=== PATIENT | female | born 1990 | race Hispanic/Latino ===

== ENCOUNTER 2023-10-02 14:37 | Emergency (ER) | payer OTHER ==
--- OUTSIDE RECORDS SUMMARY | 2023-10-02 14:41 | XMS REPORT | Continuity of Care Document ---
Author Name Unknown Address [address] [facility] [address] [place] [address] [facility] thconnect Address [address] [facility] [address] [place] [address] Care Team Providers Care Cell Tower Climber Name Role Phone Nico Menjivar MD Primary Care Physician NICHOL VILLAVICENCIO Attending Clinician Unavailable CHELSEA CHÁVEZ Attending Clinician Unavailab Chelsea Samuel Attending Clinician GC_GCBZW_Kadimarjoriea_S Attending Clinician Unavaila NAVEED Serrato Attending Clinician Unavaila NAVEED Serrato Attending Clinician Unavaila ble Doctor Unassigned, [place] Attending Clinician U navailable [email or web address]_S Admitting Clinician Unavaila ble Payers Payer Name Policy Type Policy Number Effective Date Expirati on Date Source [facility] ALEX ORTIZ COPAY FOCUS 9 [id number] 2023 00:00:00 UMR [id number] 2020 00:00:00 Problems Condition Name Condition Details Condition Category Status Onset Date Resolution Date Last Treatment Date Treating Clinician Comments Source Pes planus of both feet Pes planus of both feet Disease Active 09-10 00:00: 00 Azalia Seybold - Externa l General counseling for prescripti on of oral contracept dawson General counseling for prescripti on of oral contracept dawson Disease Active 2016-02 00:00: 00 [facility] Tobacco use disorder Tobacco use disorder Disease Active 2016-02 00:00: 00 [facility] BMI 32.0-32.9, adult BMI 32.0-32.9, adult Disease Active 2016-02 00:00: 00 [facility] Morbid obesity Morbid obesity Disease Active Azalia Seybold - Externa l Prediabete s Prediabete s Disease Active Azalia Seybold - Externa l Family history of diabetes mellitus (DM) Family history of diabetes mellitus (DM) Disease Active Azalia Seybold - Externa l Anxiety Anxiety Disease Active Azalia Seybold - Externa l Depression Depression Disease Active Kelly mock Seybold - Externa l Insomnia Insomnia Disease Active Khalif avilez Seybold - Externa l Allergies, Adverse Reactions, Alerts Allergy Name Allergy Type Status Severity Reaction(s) Onset Date Inactive Date Treating Clinician Comments Source PENICILL IN DRUG INGREDI Active Unknown-Cmnt 09-15 00:00: 00 [facility] Penicill in Propensi ty to adverse reaction s Active Unknown - See comments 09-15 00:00: 00 [facility] Penicill in G Propensi ty to adverse reaction s Active 09-15 00:00: 00 Other Reaction( s): Unknown - See comments Azalia Mayes - Externa l Social History Social Habit Start Date Stop Date Quantity Comments Source Sexual orientation Kelly Mayes - External History of tobacco use Cigarette Smoker Azalia muller - External History of Social function 2023-09-11 00:00:00 2023-09-11 00:00:00 Azalia Mayes - External Education 2023-09-11 00:00:00 2023-09-11 00:00:00 13 Azalia Mayes - External Cigarettes smoked current (pack per day) - Reported 2023-09-11 00:00:00 2023-09-11 00:00:00 Azalia Mayes - External Cigarette pack-years 2023-09-11 00:00:00 2023-09-11 00:00:00 Azalia Mayes - External Tobacco use and exposure 2023-09-11 00:00:00 2023-09-11 00:00:00 Smokeless tobacco non-user Azalia Lexyohana - External Alcoholic beverage intake 2023-09-11 00:00:00 2023-09-11 00:00:00 Lifetime non-drinker (finding) Azalia Gerber - External Alcohol intake 2022-11-28 00:00:00 2022-11-28 00:00:00 Current drinker of alcohol (finding) [facility] Tobacco Comment 2022-11-28 00:00:00 2022-11-28 00:00:00 pack/day [facility] Alcohol Comment 2022-11-28 00:00:00 2022-11-28 00:00:00 rare [facility] Sex assigned at 1990 00:00:00 1990 00:00:00 Azalia Mayes - External Smoking Status Start Date Stop Date Source Ex-smoker 2023-09-11 00:00:00 2023-09-11 00:00:00 Kelly mock Gerber - External Smokes tobacco daily 2016-12-27 00:00:00 [facility] Medications Ordered Medication Name Filled Medication Name Start Date Stop Date Current Medication? Ordering Clinician Indication Dosage Frequency Signature (SIG) Comments Components Source Trazodone HCl 50 MG oral Tablet 09-10 16:39: 29 Yes 12 50mg QD Take 1 tablet (50 mg total) by mouth nightly. Indication s: Trouble Sleeping Azalia olson Vortioxetin e HBr (Trintellix ) 10 MG oral Tablet 09-10 16:37: 51 Yes 1741 1.5{tbl } QD Take 1.5 tablets by mouth daily. Indication s: Major Depressive Disorder Azalia olson Semaglutide -FALGUNI-Loi ght Management 0.25 MG/0.5ML Subcutaneou s Solution Auto-inject or 09-10 00:00: 00 Yes [id number] .25mg Q1W Inject 0.25 mg into the skin once a week. Azalia olson Clonazepam 1 MG oral Tablet 09-10 00:00: 00 Yes [id number] 1mg QD Take 1 tablet (1 mg total) by mouth daily as needed for anxiety. Azalia olson NaCl 0.9% (NS) bolus infusion 1,000 mL 2022-02 16:15: 00 02-13 18:32 :00 No 1000mL at 999 mL/hr, 1,000 mL, IV Infusion, ONCE, 1 dose, On Mon02/13/23 at 1015, STAT [facility] cyclobenzap rine 10 mg tablet 2022-02 0 11:04: 23 Yes 10mg Take 1 tablet by mouth in the morning and 1 tablet at noon and 1 tablet in the evening. [facility] REXULTI 0.5 mg Tab 2022-02 00:00: 00 Yes [facility] venlafaxine XR 150 mg 24 hr capsule 2022-02 00:00: 00 Yes [facility] traZODone 50 mg tablet 16 00:00: 00 Yes [facility] venlafaxine XR 37.5 mg 24 hr capsule 10-11 00:00: 00 Yes [facility] Clonazepam 1 MG oral Tablet 10-11 00:00: 00 09-10 00:00 :00 No 1mg Q.5D Take 1 tablet (1 mg total) by mouth 2 times daily as needed for anxiety. Azalia olson cyclobenzap rine 10 mg tablet 2016-02 15:16: 06 Yes 10mg Take 10 mg by mouth 3 (three) times daily. [facility] norgestimat e-ethinyl estradiol (SPRINTEC) 0.25-35 mg-mcg per tablet 2016-02 00:00: 00 Yes [id number] 1{tbl} Take 1 tablet by mouth daily. [facility] Vital Signs Vital Name Observation Time Observation Value Comments S lilia Systolic blood pressure 2023-09-11 21:10:00 115 mm[Hg] Azalia nunes - External Diastolic blood pressure 2023-09-11 21:10:00 68 mm[Hg] Azalia Burnetto ld - External Heart rate 2023-09-11 21:10:00 88 /min Khalif Mayes - External Body temperature 2023-09-11 21:10:00 36.56 Nadeen Azalia Streeterybold - External Respiratory rate 2023-09-11 21:10:00 16 /min Azalia Burnettold - External Body height 2023-09-11 21:10:00 157.5 cm Luz Elena samuel Seybold - External Body weight 2023-09-11 21:10:00 102.059 kg Luz Elena samuel Seybold - External BMI 2023-09-11 21:10:00 41.15 kg/m2 Luz Elena samuel Seybold - External Oxygen saturation in Arterial blood by Pulse oximetry 2023-09-11 21:10:00 100 /min Azalia Reynoso ld - External Oxygen saturation in Arterial blood by Pulse oximetry 2023-02-13 18:30:00 98 /min [facility] Systolic blood pressure 2023-02-13 18:30:00 111 mm[Hg] [facility] Diastolic blood pressure 2023-02-13 18:30:00 56 mm[Hg] [facility] Heart rate 2023-02-13 18:30:00 89 /min [facility] Respiratory rate 2023-02-13 18:30:00 16 /min [facility] Body temperature 2023-02-13 15:48:00 36.78 Nadeen [facility] Body height 2023-02-13 15:48:00 157.5 cm [facility] Body weight 2023-02-13 15:48:00 108.863 kg [facility] BMI 2023-02-13 15:48:00 43.90 kg/m2 [facility] Systolic blood pressure 2022-11-28 16:02:00 129 mm[Hg] [facility] Diastolic blood pressure 2022-11-28 16:02:00 84 mm[Hg] [facility] Heart rate 2022-11-28 16:02:00 81 /min [facility] Respiratory rate 2022-11-28 16:02:00 18 /min [facility] Body height 2022-11-28 16:02:00 160 cm [facility] Body weight 2022-11-28 16:02:00 101.152 kg [facility] BMI 2022-11-28 16:02:00 39.50 kg/m2 [facility] Procedures Procedure Date / Time Performed Performing Clinicia n Source POCT TEST 2023-02-13 17:45:00 Chelsea Chávez [facility] URINALYSIS 2023-02-13 17:43:00 [facility] 2023-02-13 16:38:00 Chelsea Chávez Un [facility] COMP. METABOLIC PANEL ([id number]) 2023-02-13 16:38:00 Chelsea Chávez [facility] CBC WITH DIFF 2023-02-13 16:38:00 Chelsea [facility]-BNP 2023-02-13 16:38:00 Chelsea Chávez [facility] CONSENT/REFUSAL FOR DIAGNOSIS AND TREATMENT 2023-02-13 15:44:31 Doctor Unassigned, [place] [facility] ASSIGNMENT OF BENEFITS 2022-11-28 15:39:56 Docto r Unassigned, [place] [facility] Encounters Start Date/Time End Date/Time Encounter Type Admission Type Attending Clinicians Care Facility Care Department Encounter ID Source 2023-10-26 15:00:00 2023-10-26 15:00:00 Outpatient NICHOL VILLAVICENCIO [id number] Azalia Mayes 2023-09-25 00:00:00 2023-09-25 00:00:00 Outpatient NICHOL VILLAVICENCIO [id number] Azalia Mayes 2023-09-11 16:15:00 2023-09-11 16:15:00 Outpatient NICHOL VILLAVICENCIO [id number] Azalia Mayes 2023-02-13 09:52:00 2023-02-13 12:32:00 Emergency X CHELSEA CHÁVEZ [facility] ERT [id number] [facility] 2023-02-13 09:52:00 2023-02-13 12:32:00 Emergency Chelsea Chávez [facility] [id number] [facility] 2022-12-17 00:00:00 2022-12-17 00:00:00 Outpatient GC_GCBZW_Ka diyala_S PRIV PRIV [id number] [facility] 2022-12-07 00:00:00 2022-12-07 00:00:00 Outpatient R NAVEED HERNANDEZ [facility] [id number] [facility] 2022-11-28 11:00:00 2022-11-28 11:25:27 Office Visit Naveed Hernandez [facility] 1..840.114 350.1.13.10 [id number] [id number] [facility] 2022-11-28 11:00:00 2022-11-28 11:25:27 Outpatient R NAVEED HERNANDEZ [facility] [id number] [facility] 2022-11-28 00:00:00 2022-11-28 00:00:00 Orders Only Doctor Unassigned, [place] [facility] 1..840.114 350.1.13.10 4.2.7.2.686 [id number] [facility] Results Test Description Test Time Test Comments Results Result Co mments Source [facility] [id number] 17:25:38* Test Item Value Reference Range Interpretation Comme nts NT-proBNP (test code = 25362-2) <=125 Lab Interpretation (test cod e = 41511-0) Normal [facility] [id number] 17:25:12* Test Item Value Reference Range Interpretation Comme nts TROPONIN I (test code = 5952793489) 0.001 ng/mL <=0.034 FROILAN (test code = FROILAN) Reference (Normal) Range (defined by the 99th percentile reference limit): <= 0.034 ng/mL Note: Cardiac troponin begins to rise 3-4 hours after the onset of ischemia. Repeat in 4-6 hours if the sample was drawn within 3-4 hours of the onset of the symptom and found normal. Diagnosis of myocardial injury is made with acute changes in cTn concentrations with at least one serial sample above the 99th percentile upper reference limit (URL), taken together with the patient's clinical presentation. Biotin has been reported to cause a negative bias, interpret results relative to patient's use of biotin. Lab Interpretation (test code = 28062-6) Normal [facility]. METABOLIC PANEL (58878)2023-02-13 17:13:34* Test Item Value Reference Range Interpretation Comme nts NA (test code = 3537013577) 136 mmol/L 135-145 K (test code = 5793077996) 3.8 mmol/L 3.5-5.0 CL (test code = 7502514548) 105 mmol/L 98-108 CO2 TOTAL (test code = 9721614373) 25 mmol/L 23-31 AGAP (test code = 3502385107) 6 2-16 BUN (test code = 0161605128) 9 mg/dL 7-23 GLUCOSE (test code = 7481275085) 140 mg/dL 70-110 H CREATININE (test code = 1374661869) 0.54 mg/dL 0.50-1.04 TOTAL BILI (test code = 8431470251) 0.5 mg/dL 0.1-1.1 CALCIUM (test code = 8821919847) 9.0 mg/dL 8.6-10.6 T PROTEIN (test code = 3294060214) 7.8 g/dL 6.3-8.2 ALBUMIN (test code = 1480856370) 4.1 g/dL 3.5-5.0 ALK PHOS (test code = 8289385572) 106 U/L 34-122 ALTv (test code = 1742-6) 16 U/L 5-35 AST(SGOT) (test code = 7771017672) 18 U/L 13-40 eGFR (test code = 78245-3) 124.9 mL/min/1.73m2 CKD-EPI eGFR (2020). Assuming creatinine has been stable day-to-day for at least three months, the eGFR indicates Category G1 (>= 90 mL/min/1.73 m2) Lab Interpretation (test code = 72045-2) Abnormal [facility] WITH [id number] 16:59:49* Test Item Value Reference Range Interpretation Comme nts WBC (test code = 6690-2) 13.21 See_Comment H [Automated message] The system which generated this result transmitted reference range: 4.30 - 11.10 10*3/?L. The reference range was not used to interpret this result as normal/abnormal. RBC (test code = 789-8) 4.55 See_Comment [Automated message] The system which generated this result transmitted reference range: 3.93 - 5.25 10*6/?L. The reference range was not used to interpret this result as normal/abnormal. HGB (test code = 718-7) 12.4 g/dL 11.6-15.0 HCT (test code = 4544-3) 38.0 % 35.7-45.2 MCV (test code = 787-2) 83.5 fL 80.6-95.5 MCH (test code = 785-6) 27.3 pg 25.9-32.8 MCHC (test code = 786-4) 32.6 g/dL 31.6-35.1 RDW-SD (test code = 01691-7) 43.8 fL 39.0-49.9 RDW-CV (test code = 788-0) 14.3 % 12.0-15.5 PLT (test code = 777-3) 294 See_Comment [Automated message] The system which generated this result transmitted reference range: 166 - 358 10*3/?L. The reference range was not used to interpret this result as normal/abnormal. MPV (test code = 83417-6) 9.5 fL 9.5-12.9 NRBC/100 WBC (test code = 1586101885) 0.0 See_Comment [Automated message] The system which generated this result transmitted reference range: 0.0 - 10.0 /100 WBCs. The reference range was not used to interpret this result as normal/abnormal. NRBC x10^3 (test code = 4969474540) See_Comment [Automated message] The system which generated this result transmitted reference range: 10*3/?L. The reference range was not used to interpret this result as normal/abnormal. GRAN MAT (NEUT) % (test code = 770-8) 77.2 % IMM GRAN % (test code = 0719322848) 0.70 % LYMPH % (test code = 736-9) 15.4 % MONO % (test code = 5905-5) 5.5 % EOS % (test code = 713-8) 0.9 % BASO % (test code = 706-2) 0.3 % GRAN MAT x10^3(ANC) (test code = 7061390823) 10.20 10*3/uL 1.88-7.09 H IMM GRAN x10^3 (test code = 8326325496) 0.09 10*3/uL 0.00-0.06 H LYMPH x10^3 (test code = 731-0) 2.03 10*3/uL 1.32-3.29 MONO x10^3 (test code = 742-7) 0.73 10*3/uL 0.33-0.92 EOS x10^3 (test code = 711-2) 0.12 10*3/uL 0.03-0.39 BASO x10^3 (test code = 704-7) 0.04 10*3/uL 0.01-0.07 Lab Interpretation (test code = 54725-9) [facility] [id number] 08:30:05SPECIMEN NUMBER: [id number] CULTURE, URINE SPECIMEN NUMBER: [id number] SPECIMEN COMMENT: URINE SOURCE: URINE REPORT STATUS: FINAL FINAL REPORT: 07/29/2021 10-50,000 CFU/ML UROGENITAL ARIES PRESENT NO COMMON PATHOGENS UNLESS OTHERWISE INDICATED, ALL TESTING PERFORMED [facility] [address] [place] [address] CASH APPLICATIONS ASSOCIATE: JUAN MANUEL HERNANDEZ M.D. CLIA NUMBER [id number] [facility] [place]. [id number] Notes Date/Time Note Provider Source 2023-02-13 12:30:55 Pt given printed and verbal discharge instructions regarding intermittent lightheadedness and dizziness, encouraged hydration. Pt verbalized understanding of instructions, pt awake alert oriented, resp reg unlabored, skin w/d, color appropriate for race, moves all ext well, pt encouraged to follow up with pcp. Advised to seek medical attention for new/prolonged/worsening of symptoms. Symptoms addressed. No adverse reaction to meds given in ER noted upon discharge. PIV d'cd, dressing to site, catheter intact. Pt leaving amb with steady gait, in no apparent distress, left with . Roche RN [facility] 2023-02-13 09:45:55 Patient states: "About a week ago I collapsed. I was feeling like I was swaying. My hearing got really sensitive, I got weak. It would go away during the day, then come back at night. Today it's staying. I've felt this way for 12 hours. Today my legs and feet are going numb. I had high blood pressure last night of 150/110" Reports MD increasing her Effexor dose for depression 2 weeks ago. Pmhx: none Amaral RN [facility]
[2023-10-02 16:40] LABS: Absolute Basophils 0.1 K/uL (0-0.5); Absolute Eosinophils 0.1 K/uL (0-0.5); Absolute Lymphocytes (CBC) 2.6 K/uL (0.7-4.9); Absolute Monocytes 0.5 K/uL (0.1-1.3); Absolute Neutrophil 6.1 K/uL (1.8-8.0); Eosinophils % 1.1 % (0-4.4); Hemoglobin 11.5 g/dL (12.0-15.0); Lymphocytes % 27.4 % (15.3-44.8); MCH 26.2 pg (27.0-35.0); MCHC 32.8 g/dL (32.0-36.0); MCV 79.8 fL (80-100); MPV 7.4 fL (7.6-11.3); Monocytes % 5.6 % (3.3-12.3); Neutrophils % 64.9 % (41.7-73.7); Nucleated Red Blood Cells % 0.1 % (0-0); Platelets 307 thou/uL (152-406); RBC Red Blood Cell Count 4.38 M/uL (3.86-4.86); Red Cell Distribution Width 16.7 % (12.1-15.2)
[2023-10-02 16:52] LABS: Specific Gravity > 1.030 (1.005-1.030); Sqamous Epithelial <5 /HPF (None Seen); Urine Bacteria <20 /HPF (<20); Urine Bilirubin NEGATIVE (Negative); Urine Blood 3+ (OVER) (Negative); Urine Clarity Extremely Turbid (Clear); Urine Color Orange (Yellow); Urine Culture Reflex Order REFLEXED; Urine Glucose TRACE (Negative); Urine Ketones NEGATIVE (Negative); Urine Microscopic Reflex YN ORDER UMIC; Urine Mucus 3+ /HPF (None Seen); Urine Nitrite NEGATIVE (Negative); Urine Protein 1+ (Negative); Urine RBC >50 /HPF (None Seen); Urine Urobilinogen 1+ (Normal); Urine WBC >50 /HPF (<5); Urine WBC Clump Moderate /HPF (None Seen)
[2023-10-02 16:54] LABS: Specific Gravity > 1.030 (1.005-1.030)
[2023-10-02 16:55] LABS: ALT/SGPT < 14 U/L (13-56); AST/SGOT < 10 U/L (15-37); Albumin/Globulin Ratio 0.7 (1.1-1.8); Alkaline Phosphatase 87 U/L (45-117); BUN Blood Urea Nitrogen 11 mg/dL (7-18); Bicarbonate 24 mEq/L (21-32); Bilirubin Total 0.3 mg/dL (0.2-1.0); Globulin 4.3 g/dL (2.3-3.5); Glomerular Filtration Rate 119 ml/min (=/>90); Glucose Level 102 mg/dL (74-106); Lipase 30 U/L (13-75); Protein, Total 7.3 g/dL (6.4-8.2); Sodium Level 139 mEq/L (136-145)
--- NOTE | 2023-10-02 17:50 | RAD REPORT ---
EXAM DESCRIPTION: CT - Stone Protocol - 10/02/2023 5:33 pm CLINICAL HISTORY: Abdominal pain. Right lower quadrant pain COMPARISON: None. TECHNIQUE: Computed axial tomography of the abdomen pelvis was obtained without oral or IV contrast. Lack of IV and oral contrast limits evaluation of solid organs, appendix, bowel, and vessels. Calixto l reformatted images were obtained and reviewed. All CT scans are performed using dose optimization technique as appropriate and may include automated exposure control or mA/KV adjustment according to patient size. FINDINGS: A renal calculus is not seen. An ureteral calculus is not noted. A bladder calculus is not present. No hydronephrosis The liver, spleen, pancreas and adrenals appear grossly normal There is no evidence of diverticulitis. The appendix appears normal Right ovary appears mildly enlarged Moderate metal stool within the transverse and right colon IMPRESSION: Negative for a genitourinary calculus Mild enlargement right ovary
--- NOTE | 2023-10-02 18:26 | ER ---
Nurse's Notes [facility] Name: Kelly Early Age: 32 yrs Sex: Female : 1990 Arrival Date: 10/02/2023 Time: 14:37 Bed 18 Private MD: Diagnosis: UTI/ Urinary tract infection, site not specified Presentation: 10/01 15:17 Chief complaint: Patient states: RLQ abdominal pain onset 2 days ago. Pt states that cm10 the pain started after starting her period. Pt reports nausea. Coronavirus screen: Client denies travel out of the [place] in the last 14 days. At this time, the client does not indicate any symptoms associated with coronavirus-19. Ebola Screen: Patient denies travel to an Ebola-affected area in the 21 days before illness onset. No symptoms or risks identified at this time. Initial Sepsis Screen: Does the patient meet any 2 criteria? No. Patient's initial sepsis screen is negative. Does the patient have a suspected source of infection? No. Patient's initial sepsis screen is negative. Risk Assessment: Do you want to hurt yourself or someone else? Patient reports no desire to harm self or others. Onset of symptoms was October 02, 2023. 15:17 Method Of Arrival: Ambulatory cm10 15:17 Acuity: CYNTHIA 3 cm10 Triage Assessment: 15:19 General: Appears in no apparent distress. comfortable, Behavior is calm, cooperative. cm10 Neuro: No deficits noted. Level of Consciousness is awake, alert, obeys commands, Oriented to person, place, time, situation, Appropriate for age. MANAGER REGULATORY: 18:48 2, Full Term 1, Premature 0, 0, Living 1, LMP 09/28/2023, kj2 unknown Historical: - Allergies: 15:19 PENICILLINS; cm10 - Home Meds: 15:19 Trintellix oral 15 mg [Active]; cm10 - PMHx: 15:19 Depressive disorder; Anxiety; cm10 - PSHx: 15:19 Tonsillectomy; cm10 - Immunization history:: Adult Immunizations up to date. - Infectious Disease History:: Denies. - Social history:: Smoking status: Reported history of juuling and/or vaping. Screenin:10 [facility] ED Fall Risk Assessment (Adult) History of falling in the last 3 months, kj2 including since admission No falls in past 3 months (0 pts) Confusion or Disorientation No (0 pts) Intoxicated or Sedated No (0 pts) Impaired Gait No (0 pts) Mobility Assist Device Used No (0 pt) Altered Elimination No (0 pt) Score/Fall Risk Level 0 - 2 = Low Risk Maintained a safe environment, Educated pt \T\ family on fall prevention, incl call for assistance when getting out of bed, Hourly rounding (assess needs \T\ fall precautionary measures) done. Abuse screen: Denies threats or abuse. Denies injuries from another. Nutritional screening: No deficits noted. Tuberculosis screening: No symptoms or risk factors identified. Assessment: 18:10 General: Appears in no apparent distress. Behavior is calm, cooperative. Pain: kj2 Complains of pain in abdpmen. Neuro: Level of Consciousness is awake, alert, obeys commands, Oriented to person, place, time. Cardiovascular: Capillary refill < 3 seconds Patient's skin is warm and dry. Respiratory: Airway is patent Respiratory effort is even, unlabored. GI: Bowel sounds present X 4 quads. Abd is non tender. : No deficits noted. Vital Signs: 15:17 BP 119 / 70; Pulse 78; Resp 16; Temp 98.6; Pulse Ox 99% on R/A; Weight 99.79 kg; Height cm10 5 ft. 2 in. ; Pain 7/10; 18:51 BP 111 / 74; Pulse 56; Resp 18; Temp 98.2(O); Pulse Ox 99% on R/A; kj2 15:17 Body Mass Index 40.24 (99.79 kg, 157.48 cm) cm10 15:17 Pain Scale: Adult cm10 ED Course: 14:40 Patient arrived in ED. im 14:56 Rai Trujillo PA is PHCP. cp 14:56 Jim Lock MD is Attending Physician. cp 15:19 Triage completed. cm10 15:20 Arm band placed on Patient placed in waiting room. cm10 16:30 Inserted saline lock: 20 gauge in right antecubital area, using aseptic technique. nj1 Blood collected. Flushed with 10 mL NS. 16:39 Urine collected: clean catch specimen, cloudy, norma colored. zm 16:39 Test, Urine Sent. zm 16:39 Urinalysis w/ reflexes Sent. zm 17:34 CT Stone Protocol In Process Unspecified. EDMS 18:31 Delores Larsen, RN is Primary Nurse. kj2 18:34 Patient has correct armband on for positive identification. Bed in low position. Call kj2 light in reach. Provided Education on: call light, fall precautions. 18:35 No provider procedures requiring assistance completed. kj2 18:50 IV discontinued, intact, bleeding controlled, No redness/swelling at site. Pressure kj2 dressing applied. Administered Medications: 18:50 Drug: Rocephin IV 1 grams IV at calculated rate once; Given slow IV push per pharmacy kj2 instructions Route: IV; Rate: calculated rate; Site: right antecubital; 18:50 Follow up: IV Status: Completed infusion; IV Intake: 10ml kj2 18:51 Follow up: Response: No adverse reaction; Medication administered at discharge. kj2 Medication: 18:35 VIS not applicable for this client. kj2 Intake: 18:50 IV: 10ml; Total: 10ml. kj2 Outcome: 18:26 Discharge ordered by MD. cp 18:49 Discharged to home ambulatory, kj2 18:49 Condition: stable 18:49 Discharge instructions given to patient, Instructed on discharge instructions, follow up and referral plans. Demonstrated understanding of instructions, follow-up care, medications, Prescriptions given X 2, 18:52 Patient left the ED. kj2 Signatures: Dispatcher [employer] EDMS Rai Trujillo PA PA cp Martinez, Zaina zm Jaco, Norma, RN RN nj1 Nazanin Auguste Clarissa, RN RN cm10 Delores Larsen, RN RN kj2
--- NOTE | 2023-10-02 18:27 | EDPHYS ---
Physician Documentation [facility] Name: Kelly Early Age: 32 yrs Sex: Female : 1990 Arrival Date: 10/02/2023 Time: 14:37 Bed 18 Private MD: ED Physician Jim Lock HPI: 10/01 15:30 This 32 yrs old Female presents to ER via Ambulatory with complaints of cp Abdominal Pain. 15:30 The patient presents with abdominal pain right upper lateral abdomen. Onset: The cp symptoms/episode began/occurred 2 day(s) ago. The symptoms do not radiate. Associated signs and symptoms: Pertinent negatives: constipation, diarrhea, fever, urinary symptoms. [employer]: 18:48 2, Full Term 1, Premature 0, 0, Living 1, LMP 09/28/2023, kj2 unknown Historical: - Allergies: 15:19 PENICILLINS; cm10 - Home Meds: 15:19 Trintellix oral 15 mg [Active]; cm10 - PMHx: 15:19 Depressive disorder; Anxiety; cm10 - PSHx: 15:19 Tonsillectomy; cm10 - Immunization history:: Adult Immunizations up to date. - Infectious Disease History:: Denies. - Social history:: Smoking status: Reported history of juuling and/or vaping. ROS: 15:35 Abdomen/GI: Positive for abdominal pain, of the right upper lateral abdomen, Negative cp for vomiting, diarrhea, constipation, 15:35 Constitutional: Negative for body aches, chills, fever, poor PO intake, cp 15:35 Respiratory: Negative for cough, shortness of breath, wheezing, 15:35 : Negative for hematuria, 15:35 Eyes: Negative for injury, pain, redness, and discharge, cp 15:35 Neck: Negative for pain with movement, pain at rest, stiffness, cp 15:35 Cardiovascular: Negative for chest pain, 15:35 Back: Negative for injury or acute deformity, decreased range of motion, 15:35 Neuro: Negative for altered mental status, dizziness, headache, numbness, weakness, 15:35 All other systems are negative, Exam: 15:40 Constitutional: The patient appears in no acute distress, alert, awake, non-toxic, well cp developed, well nourished, 15:40 Head/Face: Normocephalic, atraumatic. cp 15:40 Eyes: Periorbital structures: appear normal, Conjunctiva: normal, no exudate, no injection, Sclera: no appreciated abnormality, Lids and lashes: appear normal, bilaterally, 15:40 ENT: External ear(s): are unremarkable, Nose: is normal, Mouth: Lips: moist, Oral mucosa: pink and intact, moist, Posterior pharynx: Airway: no evidence of obstruction, patent, 15:40 Chest/axilla: Inspection: normal, 15:40 Cardiovascular: Rate: normal, Rhythm: regular, 15:40 Respiratory: the patient does not display signs of respiratory distress, Respirations: normal, no use of accessory muscles, no retractions, labored breathing, is not present, Breath sounds: are clear throughout, no decreased breath sounds, no stridor, no wheezing, 15:40 Abdomen/GI: Inspection: abdomen appears normal, Bowel sounds: active, all quadrants, Palpation: soft, in all quadrants, mild abdominal tenderness, in the right upper lateral abdomen, rebound tenderness, is not appreciated, involuntary guarding, is not appreciated, 15:40 Back: CVA tenderness, is absent, 15:40 Skin: cellulitis, is not appreciated, no rash present. 15:40 Neuro: Orientation: is normal, Mentation: is normal, Motor: moves all fours, strength is normal, Sensation: is normal, Gait: is steady, at a normal pace, without difficulty, Vital Signs: 15:17 BP 119 / 70; Pulse 78; Resp 16; Temp 98.6; Pulse Ox 99% on R/A; Weight 99.79 kg; Height cm10 5 ft. 2 in. ; Pain 7/10; 18:51 BP 111 / 74; Pulse 56; Resp 18; Temp 98.2(O); Pulse Ox 99% on R/A; kj2 15:17 Body Mass Index 40.24 (99.79 kg, 157.48 cm) cm10 15:17 Pain Scale: Adult cm10 MDM: 15:23 Patient medically screened. cp 16:00 Differential diagnosis: cholecystitis, Cholelithiasis, Ectopic , gastritis, cp non-specific abd pain, pancreatitis, Peptic Ulcer Disease, Perf. Duodenal Ulcer, Perf. Gastric Ulcer, Pyelonephritis, Ureterolithiasis, urinary tract infection. 18:25 Data reviewed: vital signs, nurses notes, lab test result(s), radiologic studies, CT cp scan. 18:25 I considered the following discharge prescriptions or medication management in the emergency department Medications were administered in the Emergency Department. See MAR. 18:25 Counseling: I had a detailed discussion with the patient and/or guardian regarding the historical points, exam findings, and any diagnostic results supporting the discharge/admit diagnosis, lab results, radiology results, to return to the emergency department if symptoms worsen or persist or if there are any questions or concerns that arise at home. Special discussion: Based on the patient's Hx, exam, and Dx evaluation, there is no indication for emergent surgery or inpatient Tx. It is understood by the patient/guardian that if the Sx's persist or worsen they need to return immediately for re-evaluation. 10/01 15:24 Order name: CBC with Diff; Complete Time: 17:08 10/01 17:08 Interpretation: Normal except: HGB 11.5; HCT 35.0; MCV 79.8; MCH 26.2; RDW 16.7; MPV cp 7.4. 10/01 15:24 Order name: CMP; Complete Time: 17:08 10/01 18:20 Interpretation: Normal except: CL 109; AST < 10; ALB 3.0; GLOB 4.3; A/G 0.7. 10/01 15:24 Order name: Lipase; Complete Time: 17:08 10/01 15:24 Order name: Test, Urine; Complete Time: 17:08 10/01 18:20 Interpretation: Reviewed. 10/01 15:24 Order name: Urinalysis w/ reflexes; Complete Time: 17:08 10/01 18:21 Interpretation: Normal except: UCLA Extremely Turbid; Urine SG > 1.030; UGLUC TRACE; cp UBLD 3+ (OVER); UPROT 1+; UUROB 1+; UWBC >50; URBC >50; MUCUS 3+; UWBC Clump Moderate. 10/01 16:56 Order name: Urine Culture EDFL 10/01 17:10 Order name: CT Stone Protocol; Complete Time: 18:20 10/01 15:24 Order name: IV Saline Lock; Complete Time: 16:31 10/01 15:24 Order name: Labs collected and sent; Complete Time: 16:31 cp Administered Medications: 18:50 Drug: Rocephin IV 1 grams IV at calculated rate once; Given slow IV push per pharmacy kj2 instructions Route: IV; Rate: calculated rate; Site: right antecubital; 18:50 Follow up: IV Status: Completed infusion; IV Intake: 10ml kj2 18:51 Follow up: Response: No adverse reaction; Medication administered at discharge. kj2 Disposition Summary: 10/02/23 18:26 Discharge Ordered Notes: Location: Home cp Problem: new cp Symptoms: have improved cp Condition: Stable cp Diagnosis - UTI/ Urinary tract infection, site not specified cp Followup: cp - With: Private Physician - When: 2 - 3 days - Reason: Worsening of condition Discharge Instructions: - Discharge Summary Sheet cp - Urinary Tract Infection, Adult cp Forms: - Medication Reconciliation Form cp - Antibiotic Education cp - Prescription Opioid Use cp - Patient Portal Instructions cp - Leadership Thank You Letter cp Prescriptions: - Ibuprofen 800 mg Oral Tablet - take 1 tablet ORAL route every 8 hours As needed take with food; 30 tablet; cp Refills: 0, Product Selection Permitted - Bactrim DS 800-160 mg Oral tablet - take 1 tablet ORAL route every 12 hours for 7 days; 14 tablet; Refills: 0, cp Product Selection Permitted Signatures: Dispatcher [employer] Rai Villeda PA PA cp Martinez, Clarissa RN RN cm10 Delores Larsen RN RN kj2 Corrections: (The following items were deleted from the chart) 17:10 17:10 Stone Protocol+[id number].[email or web address] ordered. EDMS EDMS
[2023-10-02] MEDS ORDERED: CEFTRIAXONE 1000 MG/VIAL ONE (18:38)
[2023-10-02 19:42] VITALS: O2SAT 99
[2023-10-02 19:43] VITALS: BP 111/74; TEMP 98.2
== END 2023-10-02 18:52 | disposition home or self-care (01) ==
LOC: ER 14:37
DX: N39.0 Urinary tract infection, site not specified (principal)
CPT/HCPCS: 87088; 85025; 81001; 87086; 36415; 81025; 83690; 80053; 76377; 74176; 96374; 99284; J0696

== ENCOUNTER 2023-11-01 13:17 | Emergency (ER) | payer OTHER ==
--- OUTSIDE RECORDS SUMMARY | 2023-11-01 13:21 | XMS REPORT | Continuity of Care Document ---
Author Name Unknown Address [address] [facility] [address] [place] [address] [facility] thconnect Address [address] [facility] [address] [place] [address] Care Team Providers Care Assembler Tubing Name Role Phone Nico Menjivar MD Primary Care Physician [phone] NICHOL VILLAVICENCIO Attending Clinician Unavailable MD SANDEE Attending Clinician Unavailab le LAB90 Attending Clinician Unavailable VENICE KENYON Attending Clinician Unavailab JOHN Zayas Attending Clinician Unava ilable CHELSEA CHÁVEZ Attending Clinician Unavailab Chelsea Samuel Attending Clinician [phone] [email or web address]_S Attending Clinician Unavaila NAVEED Serrato Attending Clinician Unavaila NAVEED Serrato Attending Clinician Unavaila bautista Doctor Unassigned, [place] Attending Clinician U navailable [email or web address]_S Admitting Clinician Unavaila ble Payers Payer Name Policy Type Policy Number Effective Date Expirati on Date Source [facility] FOCUS 9 [id number] 2023 00:00:00 UMR [id number] 2020 00:00:00 Problems Condition Name Condition Details Condition Category Status Onset Date Resolution Date Last Treatment Date Treating Clinician Comments Source Acute cystitis without hematuria Acute cystitis without hematuria Disease Active 10-25 00:00: 00 Azalia Mayes - Externa l Abdominal pain, RUQ Abdominal pain, RUQ Disease Active 10-25 00:00: 00 Azalia Mayes - Externa l Snoring Snoring Disease Active 10-25 00:00: 00 Azalia Mayes - Externa l Current mild episode of major depressive disorder Current mild episode of major depressive disorder Disease Active 8-16 00:00: 00 Azalia Mayes - Externa l Pes planus of both feet Pes planus of both feet Disease Active 09-10 00:00: 00 Azalia Mayes - Externa l General counseling for prescripti on of oral contracept dawson General counseling for prescripti on of oral contracept dawson Disease Active 2016-02 00:00: 00 [facility] Tobacco use disorder Tobacco use disorder Disease Active 2016-02 00:00: 00 [facility] BMI 32.0-32.9, adult BMI 32.0-32.9, adult Disease Active 2016-02 00:00: 00 [facility] Morbid obesity Morbid obesity Disease Active Azalia Burnettold - Externa l Prediabete s Prediabete s Disease Active Azalia Streeterybold - Externa l Family history of diabetes mellitus (DM) Family history of diabetes mellitus (DM) Disease Active Azalia Burnettold - Externa l Anxiety Anxiety Disease Active Azalia Burnettold - Externa l Depression Depression Disease Active Kelly Burnettold - Externa l Insomnia Insomnia Disease Active Khalif avilez Seybold - Externa l Allergies, Adverse Reactions, Alerts Allergy Name Allergy Type Status Severity Reaction(s) Onset Date Inactive Date Treating Clinician Comments Source PENICILL IN DRUG INGREDI Active Unknown-Cmnt 09-15 00:00: 00 [facility] Penicill in Propensi ty to adverse reaction s Active Unknown - See comments 09-15 00:00: 00 [facility] Penicill in G Propensi ty to adverse reaction s Active 09-15 00:00: 00 Other Reaction( s): Unknown - See comments Azalia Mayes - Externa l Social History Social Habit Start Date Stop Date Quantity Comments Source Sexual orientation Kelly mock Gerber - External History of tobacco use Cigarette Smoker Azalia Streeterkristina yohana - External Alcoholic beverage intake 2023-10-26 00:00:00 2023-10-26 00:00:00 Lifetime non-drinker (finding) Azalia Mayes - External History of Social function 2023-09-11 00:00:00 2023-09-11 00:00:00 Azalia Mayes - External Education 2023-09-11 00:00:00 2023-09-11 00:00:00 13 Azalia Mayes - External Cigarettes smoked current (pack per day) - Reported 2023-09-11 00:00:00 2023-09-11 00:00:00 Azalia Mayes - External Cigarette pack-years 2023-09-11 00:00:00 2023-09-11 00:00:00 Azalia Mayes - External Tobacco use and exposure 2023-09-11 00:00:00 2023-09-11 00:00:00 Smokeless tobacco non-user Azalia Seping - External Alcohol intake 2022-11-28 00:00:00 2022-11-28 00:00:00 Current drinker of alcohol (finding) [facility] Tobacco Comment 2022-11-28 00:00:00 2022-11-28 00:00:00 pack/day [facility] Alcohol Comment 2022-11-28 00:00:00 2022-11-28 00:00:00 rare [facility] Sex assigned at 1990 00:00:00 1990 00:00:00 Azalia Mayes - External Smoking Status Start Date Stop Date Source Ex-smoker 2023-09-11 00:00:00 2023-09-11 00:00:00 Kelly mock Gerber - External Smokes tobacco daily 2016-12-27 00:00:00 [facility] Medications Ordered Medication Name Filled Medication Name Start Date Stop Date Current Medication? Ordering Clinician Indication Dosage Frequency Signature (SIG) Comments Components Source Vortioxetin e HBr (Trintellix ) 10 MG oral Tablet 10-25 15:02: 39 Yes 1741 1.5{tbl } QD Take 1.5 tablets by mouth daily. Indication s: Major Depressive Disorder Azalia olson Trazodone HCl 50 MG oral Tablet 10-25 15:02: 39 Yes 12 50mg QD Take 1 tablet (50 mg total) by mouth nightly. Indication s: Trouble Sleeping Azalia olson Ciprofloxac in HCl (Cipro) 500 MG oral Tablet 10-19 00:00: 00 10-25 04:59 :00 Yes [id number] 500mg Q.5D Take 1 tablet (500 mg total) by mouth 2 times daily for 5 days. Azalia olson Cariprazine HCl (Vraylar) 1.5 MG oral Capsule 10-17 00:00: 00 Yes Take by mouth. Azalia olson Ibuprofen (MOTRIN) 800 MG oral Tablet 10-01 00:00: 00 Yes Azalia olson TRIMETHOPRI M-SULFAMETH OXAZOLE (BACTRIM DS) 800-160 MG oral Tablet 10-01 00:00: 00 10-25 00:00 :00 No TAKE 1 TABLET BY MOUTH EVERY 12 HOURS X 7 DAYS Azalia olson Trazodone HCl 50 MG oral Tablet 09-10 16:39: 29 Yes 12 50mg QD Take 1 tablet (50 mg total) by mouth nightly. Indication s: Trouble Sleeping Azalia olson Vortioxetin e HBr (Trintellix ) 10 MG oral Tablet 09-10 16:37: 51 Yes 1741 1.5{tbl } QD Take 1.5 tablets by mouth daily. Indication s: Major Depressive Disorder Azalia olson Clonazepam 1 MG oral Tablet 09-10 00:00: 00 Yes [id number] 1mg QD Take 1 tablet (1 mg total) by mouth daily as needed for anxiety. Azalia olson Semaglutide -Quirino ght Management 0.25 MG/0.5ML Subcutaneou s Solution Auto-inject or 7 00:00: 00 10-25 00:00 :00 No [id number] .25mg Q1W Inject 0.25 mg into the skin once a week. Azalia olson NaCl 0.9% (NS) bolus infusion 1,000 mL 2022-02 16:15: 00 02-13 18:32 :00 No 1000mL at 999 mL/hr, 1,000 mL, IV Infusion, ONCE, 1 dose, On Mon02/13/23 at 1015, STAT [facility] cyclobenzap rine 10 mg tablet 2022-02 11:04: 23 Yes 10mg Take 1 tablet by mouth in the morning and 1 tablet at noon and 1 tablet in the evening. [facility] REXULTI 0.5 mg Tab 2022-02 00:00: 00 Yes [facility] venlafaxine XR 150 mg 24 hr capsule 2022-02 00:00: 00 Yes [facility] traZODone 50 mg tablet 9-16 00:00: 00 Yes [facility] venlafaxine XR 37.5 mg 24 hr capsule 10-11 00:00: 00 Yes [facility] Clonazepam 1 MG oral Tablet 10-11 00:00: 00 09-10 00:00 :00 No 1mg Q.5D Take 1 tablet (1 mg total) by mouth 2 times daily as needed for anxiety. Azalia olson cyclobenzap rine 10 mg tablet 2016-02 15:16: 06 Yes 10mg Take 10 mg by mouth 3 (three) times daily. [facility] norgestimat e-ethinyl estradiol (SPRINTEC) 0.25-35 mg-mcg per tablet 2016-02 00:00: 00 Yes [id number] 1{tbl} Take 1 tablet by mouth daily. [facility] Immunizations Ordered Immunization Name Filled Immunization Name Date Status Comments Source Tdap- (Boostrix, Adacel) Unknown Completed Azalia Seybold - External Vital Signs Vital Name Observation Time Observation Value Comments S ource Body height 2023-10-26 20:00:00 157.5 cm Luz Elena ey Seybold - External Body weight 2023-10-26 20:00:00 100.699 kg Luz Elena ey Seybold - External BMI 2023-10-26 20:00:00 40.60 kg/m2 Luz Elena ey Seybold - External Oxygen saturation in Arterial blood by Pulse oximetry 2023-10-26 20:00:00 100 /min Azalia Seybo ld - External Systolic blood pressure 2023-10-26 20:00:00 119 mm[Hg] Azalia Seybo ld - External Diastolic blood pressure 2023-10-26 20:00:00 78 mm[Hg] Azalia Seybo ld - External Heart rate 2023-10-26 20:00:00 96 /min Drese y Seybold - External Respiratory rate 2023-10-26 20:00:00 16 /min Azalia Seybold - External Systolic blood pressure 2023-09-11 21:10:00 115 mm[Hg] Azalia Seybo ld - External Diastolic blood pressure 2023-09-11 21:10:00 68 mm[Hg] Azalia Seybo ld - External Heart rate 2023-09-11 21:10:00 88 /min Drese y Seybold - External Body temperature 2023-09-11 21:10:00 36.56 Nadeen Azalia Seybold - External Respiratory rate 2023-09-11 21:10:00 16 /min Azalia Seybold - External Body height 2023-09-11 21:10:00 157.5 cm Luz Elena ey Seybold - External Body weight 2023-09-11 21:10:00 102.059 kg Luz Elena ey Seybold - External BMI 2023-09-11 21:10:00 41.15 kg/m2 Luz Elena ey Seybold - External Oxygen saturation in Arterial blood by Pulse oximetry 2023-09-11 21:10:00 100 /min Azalia Streeterybo ld - External Systolic blood pressure 2023-02-13 18:30:00 111 mm[Hg] [facility] Diastolic blood pressure 2023-02-13 18:30:00 56 mm[Hg] [facility] Heart rate 2023-02-13 18:30:00 89 /min [facility] Respiratory rate 2023-02-13 18:30:00 16 /min [facility] Oxygen saturation in Arterial blood by Pulse oximetry 2023-02-13 18:30:00 98 /min [facility] Body temperature 2023-02-13 15:48:00 36.78 Nadeen [facility] Body height 2023-02-13 15:48:00 157.5 cm [facility] Body weight 2023-02-13 15:48:00 108.863 kg [facility] BMI 2023-02-13 15:48:00 43.90 kg/m2 [facility] Systolic blood pressure 2022-11-28 16:02:00 129 mm[Hg] [facility] Diastolic blood pressure 2022-11-28 16:02:00 84 mm[Hg] [facility] Heart rate 2022-11-28 16:02:00 81 /min [facility] Respiratory rate 2022-11-28 16:02:00 18 /min [facility] Body height 2022-11-28 16:02:00 160 cm [facility] Body weight 2022-11-28 16:02:00 101.152 kg [facility] BMI 2022-11-28 16:02:00 39.50 kg/m2 [facility] Procedures Procedure Date / Time Performed Performing Clinicia n Source POCT TEST 2023-02-13 17:45:00 Chelsea Chávez [facility] URINALYSIS 2023-02-13 17:43:00 [facility] 2023-02-13 16:38:00 [facility] COMP. METABOLIC PANEL (09295) 2023-02-13 16:38:00 Chelsea Chávez [facility] CBC WITH DIFF 2023-02-13 16:38:00 [facility] 2023-02-13 16:38:00 Chelsea Chávez [facility] CONSENT/REFUSAL FOR DIAGNOSIS AND TREATMENT 2023-02-13 15:44:31 Doctor Unassigned, [place] [facility] ASSIGNMENT OF BENEFITS 2022-11-28 15:39:56 Docto r Unassigned, [place] [facility] Encounters Start Date/Time End Date/Time Encounter Type Admission Type Attending [facility] Care Department Encounter ID Source 2023-12-12 10:45:00 2023-12-12 10:45:00 Outpatient NICHOL VILLAVICENCIO [id number] [facility] 2023-10-27 00:00:00 2023-10-27 00:00:00 Outpatient MD AZALIA WATTS [id number] [facility] 2023-10-27 00:00:00 2023-10-27 00:00:00 Outpatient NICHOL VILLAVICENCIO [id number] Azalia [facility] 2023-10-26 15:00:00 2023-10-26 15:00:00 Outpatient NICHOL VILLAVICENCIO [id number] [facility] 2023-10-26 12:25:00 2023-10-26 12:25:00 Outpatient LAB90 AZALIA ZARATE [id number] [facility] 2023-10-26 00:00:00 2023-10-26 00:00:00 Outpatient AZALIA ZARATE [id number] [facility] 2023-10-22 00:00:00 2023-10-22 00:00:00 Outpatient NICHOL VILLAVICENCIO [id number] Azalia ping 2023-10-20 22:15:00 2023-10-20 22:15:00 Outpatient VENICE KENYON [id number] [facility] 2023-10-20 00:00:00 2023-10-20 00:00:00 Outpatient MD AZALIA WATTS [id number] Azalia ping 2023-10-12 00:00:00 2023-10-12 00:00:00 Outpatient NICHOL VILLAVICENCIO AZALIA [id number] Azalia Mayes 2023-10-10 09:15:00 2023-10-10 09:15:00 Outpatient JOHN ZAMUDIO AZALIA [id number] [facility] 2023-10-06 00:00:00 2023-10-06 00:00:00 Outpatient PREZASNICHOL AZALIA [id number] [facility] 2023-10-05 00:00:00 2023-10-05 00:00:00 Outpatient PREZAS, NICHOL ZARATE AZALIA [id number] [facility] 2023-10-04 00:00:00 2023-10-04 00:00:00 Outpatient PREZAS, NICHOL ZARATE AZALIA [id number] Azalia [facility] 2023-09-25 00:00:00 2023-09-25 00:00:00 Outpatient PREZANICHOL Wren AZALIA [id number] Aazlia [facility] 2023-09-11 16:15:00 2023-09-11 16:15:00 Outpatient PRENICHOL RAMIREZ AZALIA [id number] Azalia [facility] 2023-02-13 09:52:00 2023-02-13 12:32:00 Emergency X TESSA [facility] ERT [id number] [facility] 2023-02-13 09:52:00 2023-02-13 12:32:00 Emergency Chelsea Chávez [facility] [id number] [facility] 2022-12-17 00:00:00 2022-12-17 00:00:00 Outpatient [email or web address]_Ka tere_Holger [facility] [id number] [facility] 2022-12-07 00:00:00 2022-12-07 00:00:00 Outpatient NAVEED COUGHLIN [facility] [id number] [facility] 2022-11-28 11:00:00 2022-11-28 11:25:27 Office Visit Naveed Hernandez [facility] 1..840.114 350.1.13.10 [id number] [id number] [facility] 2022-11-28 11:00:00 2022-11-28 11:25:27 Outpatient R NAVEED HERNANDEZ [facility] [id number] [facility] 2022-11-28 00:00:00 2022-11-28 00:00:00 Orders Only Doctor Unassigned, [place] [facility] [id number] [id number] [facility] Results Test Description Test Time Test Comments Results Result Co mments Source [id number] 17:25:38* Test Item Value Reference Range Interpretation Comme nts NT-proBNP (test code = 39771-0) <=125 Lab Interpretation (test cod e = 76043-7) Normal [facility] [id number] 17:25:12* Test Item Value Reference Range Interpretation Comme nts TROPONIN I (test code = 8142997072) 0.001 ng/mL <=0.034 FROILAN (test code = [...] of biotin. Lab Interpretation (test code = 80552-5) Normal [facility]OLIC PAN[facility] (61392)2023-02-13 17:13:34* Test Item Value Reference Range Interpretation Comme nts NA (test code = 6737528800) 136 mmol/L 135-145 K (test code = 9520532252) 3.8 mmol/L 3.5-5.0 CL (test code = 6923719461) 105 mmol/L 98-108 CO2 TOTAL (test code = 2648782838) 25 mmol/L 23-31 AGAP (test code = 8024105400) 6 2-16 BUN (test code = 9628216463) 9 mg/dL 7-23 GLUCOSE (test code = 6425766939) 140 mg/dL 70-110 H CREATININE (test code = 5824105988) 0.54 mg/dL 0.50-1.04 TOTAL BILI (test code = 4136075335) 0.5 mg/dL 0.1-1.1 CALCIUM (test code = 5875801990) 9.0 mg/dL 8.6-10.6 T PROTEIN (test code = 8062883523) 7.8 g/dL 6.3-8.2 ALBUMIN (test code = 3741677736) 4.1 g/dL 3.5-5.0 ALK PHOS (test code = 0552779899) 106 U/L 34-122 ALTv (test code = 1742-6) 16 U/L 5-35 AST(SGOT) (test code = 6045009637) 18 U/L 13-40 eGFR (test code = 58634-5) 124.9 mL/min/1.73m2 CKD-EPI eGFR (2020). Assuming creatinine has been stable day-to-day for at least three months, the eGFR indicates Category G1 (>= 90 mL/min/1.73 m2) Lab Interpretation (test code = 18972-9) Abnormal [facility] WITH [id number] 16:59:49* Test Item Value Reference Range Interpretation [...] 32.6 g/dL 31.6-35.1 RDW-SD (test code = 08601-2) 43.8 fL 39.0-49.9 RDW-CV (test code = 788-0) 14.3 % 12.0-15.5 PLT (test code = 777-3) 294 See_Comment [Automated message] The system which generated this result transmitted reference range: 166 - 358 10*3/?L. The reference range was not used to interpret this result as normal/abnormal. MPV (test code = 15878-2) 9.5 fL 9.5-12.9 NRBC/100 WBC (test code = 7220264092) 0.0 See_Comment [Automated message] The system which generated this result transmitted reference range: 0.0 - 10.0 /100 WBCs. The reference range was not used to interpret this result as normal/abnormal. NRBC x10^3 (test code = 5865294128) See_Comment [Automated message] The system which generated this result transmitted reference range: 10*3/?L. The reference range was not used to interpret this result as normal/abnormal. GRAN MAT (NEUT) % (test code = 770-8) 77.2 % IMM GRAN % (test code = 1089404501) 0.70 % LYMPH % (test code = 736-9) 15.4 % MONO % (test code = 5905-5) 5.5 % EOS % (test code = 713-8) 0.9 % BASO % (test code = 706-2) 0.3 % GRAN MAT x10^3(ANC) (test code = 1342135312) 10.20 10*3/uL 1.88-7.09 H IMM GRAN x10^3 (test code = 5431925570) 0.09 10*3/uL 0.00-0.06 H LYMPH x10^3 (test code = 731-0) 2.03 10*3/uL 1.32-3.29 MONO x10^3 (test code = 742-7) 0.73 10*3/uL 0.33-0.92 EOS x10^3 (test code = 711-2) 0.12 10*3/uL 0.03-0.39 BASO x10^3 (test code = 704-7) 0.04 10*3/uL 0.01-0.07 Lab Interpretation (test code = 97720-5) Abnormal [facility], [id number] 08:30:05SPECIMEN NUMBER: [id number] CULTURE, URINE SPECIMEN NUMBER: [id number] SPECIMEN COMMENT: URINE SOURCE: URINE REPORT STATUS: FINAL FINAL REPORT: 07/29/2021 10-50,000 CFU/ML UROGENITAL ARIES PRESENT NO COMMON PATHOGENS UNLESS OTHERWISE INDICATED, ALL TESTING PERFORMED [facility] [address] [place] [address] FENCE RIDER: JUAN MANUEL HERNANDEZ M.D. [place] NUMBER [id number] [facility] [place]. [id number] Notes Date/Time Note Provider Source 2023-02-13 12:30:55 [...] in no apparent distress, left with . TABLE OPERATOR Tootie Roche RN [facility] 2023-02-13 09:45:55 Patient states: "About a week [...] for depression 2 weeks ago. Pmhx: none TABLE OPERATOR Ute Amaral RN [facility]
--- NOTE | 2023-11-01 14:49 | RAD REPORT ---
EXAM DESCRIPTION: Ricarda Single View11/01/2023 2:21 pm CLINICAL HISTORY: Palpitation COMPARISON: none FINDINGS: The lungs appear clear of acute infiltrate. The heart is normal size IMPRESSION: No acute abnormalities displayed
[2023-11-01 15:07] LABS: Absolute Eosinophils 0.1 K/uL (0-0.5); Absolute Lymphocytes (CBC) 1.6 K/uL (0.7-4.9); Absolute Monocytes 0.6 K/uL (0.1-1.3); Absolute Neutrophil 7.7 K/uL (1.8-8.0); Basophils % 0.5 % (0-1.3); Eosinophils % 0.7 % (0-4.4); Hematocrit 34.9 % (36.0-45.0); Hemoglobin 11.5 g/dL (12.0-15.0); Lymphocytes % 16.2 % (15.3-44.8); MCH 26.1 pg (27.0-35.0); MCHC 32.9 g/dL (32.0-36.0); MCV 79.4 fL (80-100); MPV 7.4 fL (7.6-11.3); Monocytes % 5.8 % (3.3-12.3); Neutrophils % 76.8 % (41.7-73.7); Platelets 332 thou/uL (152-406); RBC Red Blood Cell Count 4.39 M/uL (3.86-4.86); Red Cell Distribution Width 15.7 % (12.1-15.2)
[2023-11-01 15:17] LABS: Specific Gravity 1.006 (1.005-1.030)
[2023-11-01 15:19] LABS: Barbiturates NEGATIVE (NEGATIVE); Benzodiazepines NEGATIVE (NEGATIVE); Cocaine NEGATIVE (NEGATIVE); METHAMPHETAM NEGATIVE (NEGATIVE); Methadone NEGATIVE (NEGATIVE); Opiates NEGATIVE (NEGATIVE); Phencyclidine NEGATIVE (NEGATIVE); THC Cannibis POSITIVE (NEGATIVE)
[2023-11-01 15:20] LABS: Specific Gravity 1.006 (1.005-1.030); Urine Bacteria <20 /HPF (<20); Urine Bilirubin NEGATIVE (Negative); Urine Blood Negative (Negative); Urine Clarity Turbid (Clear); Urine Color Colorless (Yellow); Urine Crystals Unidentified Few /HPF (None Seen); Urine Culture Reflex Order REFLEXED; Urine Glucose NEGATIVE (Negative); Urine Ketones NEGATIVE (Negative); Urine Microscopic Reflex YN ORDER UMIC; Urine Nitrite NEGATIVE (Negative); Urine Protein NEGATIVE (Negative); Urine RBC <5 /HPF (None Seen); Urine Urobilinogen Normal (Normal); Urine pH 6.5 (5.0-7.0)
[2023-11-01 15:33] LABS: ALT/SGPT 15 U/L (13-56); Albumin 3.2 g/dL (3.4-5.0); Albumin/Globulin Ratio 0.8 (1.1-1.8); Alkaline Phosphatase 97 U/L (45-117); Anion Gap 9.9 mEq/L (5.0-15.0); BUN Blood Urea Nitrogen 8 mg/dL (7-18); Bicarbonate 23 mEq/L (21-32); Bilirubin Total 0.3 mg/dL (0.2-1.0); Globulin 4.2 g/dL (2.3-3.5); Glomerular Filtration Rate 120 ml/min (=/>90); Glucose Level 96 mg/dL (74-106); Potassium 3.9 mEq/L (3.5-5.1); Protein, Total 7.4 g/dL (6.4-8.2); Sodium Level 137 mEq/L (136-145)
[2023-11-01 15:34] LABS: AST/SGOT < 10 U/L (15-37); Troponin High Sensitivity < 3.0 pg/mL (<58.9)
--- NOTE | 2023-11-01 16:13 | EDPHYS ---
Physician Documentation [facility] Name: Kelly Early Age: 32 yrs Sex: Female : 1990 Arrival Date: 11/01/2023 Time: 13:17 Bed 2 Private MD: ED Physician Rai Nelson HPI: 10/31 13:37 This 32 yrs old Female presents to ER via Unassigned with complaints of kb tremors. 13:37 Pt is a 32 year old female who presents for tremors and palpitations that started one kb hour ago. States she took her trintellix (normal dose and time) then smoked some THC. States symptoms have not improved so she came in for evaluation. . ACQUISITION CONSULTANT: 16:23 LMP N/A - control method, Not ll1 Historical: - Allergies: 13:49 PENICILLINS; iw - PMHx: 13:49 depressive disorder; Anxiety; iw - PSHx: 13:49 Tonsillectomy; iw - Immunization history:: Adult Immunizations up to date. - Infectious Disease History:: Denies. - Social history:: Smoking status: Patient denies any tobacco usage or history of. ROS: 13:37 Constitutional: As per HPI kb Exam: 13:37 Constitutional: This is a well developed, well nourished patient who is awake, alert, kb and in no acute distress. Head/Face: Normocephalic, atraumatic. ENT: Moist Mucous membranes Cardiovascular: Tachycardic rate Respiratory: Respirations even and unlabored. No increased work of breathing. Talking in full sentences Abdomen/GI: Soft, non-tender. No distention Skin: Warm, dry with normal turgor. Normal color. MS/ Extremity: Pulses equal, no cyanosis. Neurovascular intact. Full, normal range of motion. Neuro: Awake and alert, GCS 15, oriented to person, place, time, and situation. Moves all extremities. Normal gait. 14:59 ECG was reviewed by the Attending Physician. kb Vital Signs: 13:40 BP 123 / 69; Pulse 101; Resp 22; Temp 97.2; Pulse Ox 100% ; Weight 101.15 kg; Height 5 kb ft. 2 in. ; Pain 0/10; 14:49 BP 112 / 87; Pulse 77; Resp 16; Pulse Ox 98% ; bp 16:22 BP 116 / 85; Pulse 71; Resp 17; Pulse Ox 98% on R/A; ll1 13:40 Body Mass Index 40.79 (101.15 kg, 157.48 cm) kb 13:40 Pain Scale: Adult kb MDM: 13:24 Patient medically screened. kb 16:01 Data reviewed: vital signs, nurses notes. kb 16:01 Differential diagnosis: drug reaction, dehydration, abnormal electrolytes, arrhythmia. kb Historians other than the Patient: Spouse/Significant Other: spouse. Counseling: I had a detailed discussion with the patient and/or guardian regarding the historical points, exam findings, and any diagnostic results supporting the discharge/admit diagnosis, lab results, radiology results, the need for outpatient follow up, a family practitioner, to return to the emergency department if symptoms worsen or persist or if there are any questions or concerns that arise at home. ED course: Pt is feeling better and ready to go home. . 10/31 13:44 Order name: Acetaminophen; Complete Time: 15:39 kb 10/31 13:44 Order name: CBC with Diff; Complete Time: 15:22 kb 10/31 13:44 Order name: ETOH Level; Complete Time: 15:24 kb 10/31 13:44 Order name: Test, Urine; Complete Time: 15:22 kb 10/31 13:44 Order name: Salicylate; Complete Time: 15:43 kb 10/31 13:44 Order name: Urinalysis w/ reflexes; Complete Time: 15:22 kb 10/31 13:44 Order name: Urine Drug Screen; Complete Time: 15:22 kb 10/31 13:44 Order name: CMP; Complete Time: 15:39 kb 10/31 13:44 Order name: Troponin High Sensitivity; Complete Time: 15:39 kb 10/31 15:24 Order name: Urine Culture EDMS 10/31 13:46 Order name: Chest Single View XRAY; Complete Time: 14:50 kb 10/31 13:44 Order name: EKG - Nurse/Tech; Complete Time: 14:49 kb 10/31 13:44 Order name: IV Saline Lock; Complete Time: 14:49 kb 10/31 13:44 Order name: Labs collected and sent; Complete Time: 14:49 kb EC:59 Rate is 73 beats/min. Rhythm is regular. QRS [place] is Normal. WA interval is normal at kb 156 msec. QRS interval is normal at 90 msec. QT interval is normal at 427 msec. Administered Medications: No medications were administered Disposition Summary: 11/01/23 16:12 Discharge Ordered Notes: Location: Home kb Condition: Stable kb Diagnosis - Palpitations kb Followup: kb - With: Emergency Department - When: As needed - Reason: Worsening of condition Followup: kb - With: Private Physician - When: 2 - 3 days - Reason: Recheck today's complaints, Continuance of care, Re-evaluation by your physician Discharge Instructions: - Discharge Summary Sheet kb - Palpitations, [id number]-re-[id number] kb Forms: - Medication Reconciliation Form kb - Antibiotic Education kb - Prescription Opioid Use kb - Patient Portal Instructions kb - Leadership Thank You Letter kb Addendum: 11/04/2023 15:50 Co-signature as Attending Physician, Rai Nelson MD I agree with the assessment and c lopez plan of care. Signatures: Dispatcher [employer] EDRosey Loredo, SHERYL-C SEXUAL ASSAULT NURSE-Rai Gonzalez MD MD cha Williams, Irene, RN RN iw Lewis, Lynsay, RN RN ll1 Corrections: (The following items were deleted from the chart) 10/31 13:42 13:37 Constitutional: This is a well developed, well nourished patient who is awake, kb alert, and in no acute distress. Head/Face: Normocephalic, atraumatic. ENT: Moist Mucous membranes Cardiovascular: Regular rate Respiratory: Respirations even and unlabored. No increased work of breathing. Talking in full sentences Abdomen/GI: Soft, non-tender. No distention Skin: Warm, dry with normal turgor. Normal color. MS/ Extremity: Pulses equal, no cyanosis. Neurovascular intact. Full, normal range of motion. Neuro: Awake and alert, GCS 15, oriented to person, place, time, and situation. Moves all extremities. Normal gait. kb 13:45 13:45 ACETAMINOPHEN+C.LAB.BRZ ordered. EDMS EDMS 13:45 13:45 CBC+H.LAB.BRZ ordered. EDMS EDMS 13:45 13:45 ETHANOL+C.LAB.BRZ ordered. EDMS EDMS 13:45 13:45 Test, Urine+UC.LAB.BRZ ordered. EDMS EDMS 13:45 13:45 SALICYLATE+C.LAB.BRZ ordered. EDMS EDMS 13:45 13:45 Urinalysis+U.LAB.BRZ ordered. EDMS EDMS :45 13:45 URINE DRUG SCREEN+UC.LAB.BRZ ordered. EDMS EDMS :45 13:45 COMPREHENSIVE METABOLIC PANEL+C.LAB.BRZ ordered. EDMS EDMS :45 13:45 Troponin High Sensitivity+C.LAB.BRZ ordered. EDMS EDMS
--- NOTE | 2023-11-01 16:13 | ER ---
Nurse's Notes [facility] Name: Kelly Early Age: 32 yrs Sex: Female : 1990 Arrival Date: 11/01/2023 Time: 13:17 Bed 2 Private MD: Diagnosis: Palpitations Presentation: 10/31 13:48 Chief complaint: Patient states: took her Trintellix and smoked some THC about an hour iw ago, has been having palpitations since then. 13:49 Coronavirus screen: At this time, the client does not indicate any symptoms associated iw with coronavirus-19. Initial Sepsis Screen: Does the patient meet any 2 criteria? No. Patient's initial sepsis screen is negative. Does the patient have a suspected source of infection? No. Patient's initial sepsis screen is negative. Risk Assessment: Do you want to hurt yourself or someone else? Patient reports no desire to harm self or others. Onset of symptoms was November 01, 2023. 13:49 Acuity: CYNTHIA 3 iw 13:49 Method Of Arrival: Ambulatory iw 16:22 Ebola Screen: Patient denies travel to an Ebola-affected area in the 21 days before ll1 illness onset. Triage Assessment: 14:49 General: Appears in no apparent distress. unkempt, Behavior is cooperative, appropriate bp for age, anxious. Pain: Denies pain. EENT: No deficits noted. Neuro: No deficits noted. Cardiovascular: Reports palpitations. Respiratory: No deficits noted. GI: No signs and/or symptoms were reported involving the gastrointestinal system. : No signs and/or symptoms were reported regarding the genitourinary system. Derm: No deficits noted. Musculoskeletal: No deficits noted. FIRST DYER: 16:23 LMP N/A - control method, Not ll1 Historical: - Allergies: 13:49 PENICILLINS; iw - PMHx: 13:49 depressive disorder; Anxiety; iw - PSHx: 13:49 Tonsillectomy; iw - Immunization history:: Adult Immunizations up to date. - Infectious Disease History:: Denies. - Social history:: Smoking status: Patient denies any tobacco usage or history of. Screenin:50 [facility] ED Fall Risk Assessment (Adult) History of falling in the last 3 months, bp including since admission No falls in past 3 months (0 pts) Confusion or Disorientation No (0 pts) Intoxicated or Sedated No (0 pts) Impaired Gait No (0 pts) Mobility Assist Device Used No (0 pt) Altered Elimination No (0 pt) Score/Fall Risk Level 0 - 2 = Low Risk. Abuse screen: Denies threats or abuse. Denies injuries from another. Nutritional screening: No deficits noted. Tuberculosis screening: No symptoms or risk factors identified. Assessment: 14:31 Reassessment: No changes from previously documented assessment. not in lobby, restroom, ll1 CT, or outside. 14:50 Reassessment: Patient appears in no apparent distress at this time. Patient is alert, bp oriented x 3, equal unlabored respirations, skin warm/dry/pink. 16:22 Reassessment: No changes from previously documented assessment. Patient and/or family ll1 updated on plan of care and expected duration. Pain level reassessed. Patient is alert, oriented x 3, equal unlabored respirations, skin warm/dry/pink. Vital Signs: 13:40 BP 123 / 69; Pulse 101; Resp 22; Temp 97.2; Pulse Ox 100% ; Weight 101.15 kg; Height 5 kb ft. 2 in. ; Pain 0/10; 14:49 BP 112 / 87; Pulse 77; Resp 16; Pulse Ox 98% ; bp 16:22 BP 116 / 85; Pulse 71; Resp 17; Pulse Ox 98% on R/A; ll1 13:40 Body Mass Index 40.79 (101.15 kg, 157.48 cm) kb 13:40 Pain Scale: Adult kb ED Course: 13:21 Patient arrived in ED. ra3 13:24 [facility]C [facility] kb 13:24 Rai Nelson MD is Attending Physician. kb 13:49 Triage completed. iw 14:21 Arm band placed on Patient placed in an exam room, on a stretcher. ll1 14:23 Chest Single View XRAY In Process Unspecified. EDMS 14:26 Juliano Dodson, RN is Primary Nurse. bp 14:34 Juliano Dodson, RN is Primary Nurse. bp 14:50 Patient has correct armband on for positive identification. bp 14:50 Initial lab(s) drawn, by me, sent to lab. Urine collected: clean catch specimen, clear, bp EKG done, by ED staff, reviewed by Rosey HERRERA. Inserted saline lock: 22 gauge in left antecubital area, using aseptic technique. Blood collected. 16:22 Provided Education on: return to ED for worsening symptoms. ll1 16:22 No provider procedures requiring assistance completed. IV discontinued, intact, ll1 bleeding controlled, No redness/swelling at site. Pressure dressing applied. Administered Medications: No medications were administered Medication: 16:23 VIS not applicable for this client. ll1 Outcome: 16:12 Discharge ordered by MD. reed 16:22 Discharged to home ambulatory, ll1 16:22 Condition: stable 16:22 Discharge instructions given to patient, family, Instructed on discharge instructions, follow up and referral plans. Demonstrated understanding of instructions, follow-up care, 16:23 Patient left the ED. ll1 Signatures: Dispatcher [employer] EDMS Rosey Cole, JAVIER SAUCEDO-Jess Garcia RN JERRY iw Juliano Dodson RN RN bp Lewis, Lynsay, RN RN 1 Jennifer Stewart 3 Corrections: (The following items were deleted from the chart) 14:52 14:49 Pulse 77bpm; Resp 16bpm; Pulse Ox 98%; bp bp
[2023-11-01 16:36] VITALS: TEMP 97.2
[2023-11-01 16:44] VITALS: O2SAT 98
[2023-11-01 16:45] VITALS: BP 116/85
--- NOTE | 2023-11-02 16:23 | EKG ---
Test Date: 2023-11-01 Test Time: 14:53:10 Ip Counsel: MARIA ISABEL MEASUREMENT RESULTS: Intervals: Rate: 73 ND: 156 QRSD: 90 QT: 388 QTc: 427 Barney: P: 36 ND: 156 QRS: 17 T: 17 INTERPRETIVE STATEMENTS: Normal sinus rhythm Normal ECG No previous ECG available for comparison Electronically Signed On 11-02-23 16:21:23 CDT by Escobar Cooper
== END 2023-11-01 16:23 | disposition home or self-care (01) ==
LOC: ER 13:17
DX: R00.2 Palpitations (principal); R25.1 Tremor, unspecified
CPT/HCPCS: 36415; 71045; 80053; 80143; 80179; 80307; 81001; 81025; 82077; 84484; 85025; 87086; 87088; 93005; 99284

== ENCOUNTER 2024-05-26 14:46 | Emergency (ER) | payer BC, OTHER ==
--- OUTSIDE RECORDS SUMMARY | 2024-05-26 14:50 | XMS REPORT | Continuity of Care Document ---
Author Name Unknown Address [address] [facility] [address] [place] [address] [facility] Address [address] [facility] 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 Role Phone Otto ZELAYA, Nico Reyes Primary Care Physician MD SANDEE Attending Clinician Unavailab MEEK Sauer Attending Clinician Unavailable NICHOL VILLAVICENCIO Attending Clinician Unavailable LAB90 Attending Clinician Unavailable VENICE KENYON Attending Clinician Unavailab JHON Zayas Attending Clinician Unava ilable CHELSEA CHÁVEZ Attending Clinician Unavailab Chelsea Samuel Attending Clinician [email or web address]_Kadiyala_S Attending Clinician Unavaila NAVEED Serrato Attending Clinician Unavaila NAVEED Serrato Attending Clinician Unavaila ble Doctor Unassigned, [place] Attending Clinician U navailable [email or web address] Admitting Clinician Unavaila ble Payers Payer Name Policy Type Policy Number Effective Date Expirati on Date Source [facility] ALEX ORTIZ COPAY FOCUS 9 [id number] 2023 00:00:00 UMR [id number] 2020 00:00:00 Problems Condition Name Condition Details Condition Category Status Onset Date Resolution Date Last Treatment Date Treating Clinician Comments Source Acute cystitis without hematuria Acute cystitis without hematuria Disease Active 10-25 00:00: 00 Azalia Burnettold - Externa l Abdominal pain, RUQ Abdominal pain, RUQ Disease Active 10-25 00:00: 00 Azalia Burnettold - Externa l Snoring Snoring Disease Active 10-25 00:00: 00 Azalia Burnettold - Externa l Current mild episode of major depressive disorder Current mild episode of major depressive disorder Disease Active 16 00:00: 00 Azalia Burnettold - Externa l Pes planus of both feet Pes planus of both feet Disease Active 09-10 00:00: 00 Azalia Burnettold - Externa l General counseling for prescripti on of oral contracept dawson General counseling for prescripti on of oral contracept dawson Disease Active 2016-02 00:00: 00 [facility] Tobacco use disorder Tobacco use disorder Disease Active 2016-02 00:00: 00 [facility] BMI 32.0-32.9, adult BMI 32.0-32.9, adult Disease Active 2016-02 00:00: 00 [facility] Morbid obesity Morbid obesity Disease Active Azalia Seybold - Externa l Prediabete s Prediabete s Disease Active Azalia Seybold - Externa l Family history of diabetes mellitus (DM) Family history of diabetes mellitus (DM) Disease Active Azalia Seybold - Externa l Anxiety Anxiety Disease Active Azalia Seybold - Externa l Depression Depression Disease Active Kelly elsefatmata Seybold - Externa l Insomnia Insomnia Disease Active Drese y Seybold - Externa l Allergies, Adverse Reactions, Alerts Allergy Name Allergy Type Status Severity Reaction(s) Onset Date Inactive Date Treating Clinician Comments Source PENICILL IN DRUG INGREDI Active Unknown-Cmnt 09-15 00:00: 00 [facility] Penicill in Propensi ty to adverse reaction s Active Unknown - See comments 09-15 00:00: 00 [facility] Penicill in G Propensi ty to adverse reaction s Active 09-15 00:00: 00 Other Reaction( s): Unknown - See comments Azalia Gerber - Externa l Social History Social Habit Start Date Stop Date Quantity Comments Source Sexual orientation Kelly mock Lexyohana - External History of tobacco use Cigarette Smoker Azalia Streeterkristina yohana - External Alcoholic beverage intake 2023-10-26 00:00:00 2023-10-26 00:00:00 Lifetime non-drinker (finding) Azalia Gerber - External History of Social function 2023-09-11 00:00:00 2023-09-11 00:00:00 Azalia Mayes - External Education 2023-09-11 00:00:00 2023-09-11 00:00:00 13 Azalia Mayes - External Cigarettes smoked current (pack per day) - Reported 2023-09-11 00:00:00 2023-09-11 00:00:00 Azalia Gerber - External Cigarette pack-years 2023-09-11 00:00:00 2023-09-11 00:00:00 Azalia Mayes - External Tobacco use and exposure 2023-09-11 00:00:00 2023-09-11 00:00:00 Smokeless tobacco non-user Azalia Streeterkristinayohana - External Alcohol intake 2022-11-28 00:00:00 2022-11-28 00:00:00 Current drinker of alcohol (finding) [facility] Tobacco Comment 2022-11-28 00:00:00 2022-11-28 00:00:00 pack/day [facility] Alcohol Comment 2022-11-28 00:00:00 2022-11-28 00:00:00 rare [facility] Sex assigned at 1990 00:00:00 1990 00:00:00 Azalia ping - External Smoking Status Start Date Stop Date Source Ex-smoker 2023-09-11 00:00:00 2023-09-11 00:00:00 Kelly mock Sekristinayohana - External Smokes tobacco daily 2016-12-27 00:00:00 [facility] Medications Ordered Medication Name Filled Medication Name [...] Tablet 10-19 00:00: 00 10-25 04:59 :00 No [id number] 500mg Q.5D Take 1 tablet (500 mg [...] mouth daily. Indication s: Major Depressive Disorder zAalia olson Clonazepam 1 MG oral Tablet 09-10 00:00: 00 Yes [id number] 1mg QD Take 1 tablet (1 mg total) by mouth daily as needed for anxiety. Azalia Manzoglutide -Quirino ght Management 0.25 MG/0.5ML Subcutaneou s Solution Auto-inject or 7- 00:00: 00 10-25 00:00 :00 No [id number] .25mg Q1W Inject 0.25 mg into the skin once a week. Azalia olson NaCl 0.9% (NS) bolus infusion 1,000 mL 2022-02 16:15: 00 02-13 18:32 :00 No 1000mL at 999 mL/hr, 1,000 mL, IV Infusion, ONCE, 1 dose, On Mon02/13/23 at 1015, STAT [facility] cyclobenzap rine 10 mg tablet 2022-02 11:04: 23 Yes 10mg Take 1 tablet by mouth in the morning and 1 tablet at noon and 1 tablet in the evening. [facility] REXULTI 0.5 mg Tab 2022-02 00:00: 00 Yes [facility] venlafaxine XR 150 mg 24 hr capsule 2022-02 0 00:00: 00 Yes [facility] traZODone 50 mg tablet 9-16 00:00: 00 Yes [facility] venlafaxine XR 37.5 mg 24 hr capsule 10-11 00:00: 00 Yes [facility] Clonazepam 1 MG oral Tablet 10-11 00:00: 00 09-10 00:00 :00 No 1mg Q.5D Take 1 tablet (1 mg total) by mouth 2 times daily as needed for anxiety. Azalia olson cyclobenzap rine 10 mg tablet 2016-02 15:16: 06 Yes 10mg Take 10 mg by mouth 3 (three) times daily. [facility] norgestimat e-ethinyl estradiol (SPRINTEC) 0.25-35 mg-mcg per tablet 2016-02 00:00: 00 Yes [id number] 1{tbl} Take 1 tablet by mouth daily. [facility] Immunizations Ordered Immunization Name Filled Immunization Name Date Status Comments Source Tdap- (Boostrix, Adacel) Unknown Completed Azalia Seybold - External Vital Signs Vital Name Observation Time Observation Value Comments S ource Systolic blood pressure 2023-10-26 20:00:00 119 mm[Hg] Azalia Seybo ld - External Diastolic blood pressure 2023-10-26 20:00:00 78 mm[Hg] Azalia Seybo ld - External Heart rate 2023-10-26 20:00:00 96 /min Kelse y Seybold - External Respiratory rate 2023-10-26 20:00:00 16 /min Azalia Seybold - External Body height 2023-10-26 20:00:00 157.5 cm Luz Elena ey Seybold - External Body weight 2023-10-26 20:00:00 100.699 kg Luz Elena ey Seybold - External BMI 2023-10-26 20:00:00 40.60 kg/m2 Luz Elena ey Seybold - External Oxygen saturation in Arterial blood by Pulse oximetry 2023-10-26 20:00:00 100 /min Azalia Seybo ld - External Systolic blood pressure 2023-09-11 21:10:00 115 mm[Hg] Azalia Seybo ld - External Diastolic blood pressure 2023-09-11 21:10:00 68 mm[Hg] Azalia Seybo ld - External Heart rate 2023-09-11 21:10:00 88 /min Kelse y Seybold - External Body temperature 2023-09-11 [...] Pulse oximetry 2023-09-11 21:10:00 100 /min Azalia Seybo ld - External Systolic blood pressure 2023-02-13 18:30:00 111 mm[Hg] [facility] Diastolic blood pressure 2023-02-13 18:30:00 56 mm[Hg] [facility] Heart rate 2023-02-13 18:30:00 89 /min [facility] Respiratory rate 2023-02-13 18:30:00 16 /min [facility] Oxygen saturation in Arterial blood by Pulse oximetry 2023-02-13 18:30:00 98 /min [facility] Body temperature 2023-02-13 15:48:00 36.78 Nadeen [facility] Body height 2023-02-13 15:48:00 157.5 cm [facility] Body weight 2023-02-13 15:48:00 108.863 kg [facility] BMI 2023-02-13 15:48:00 43.90 kg/m2 [facility] Systolic blood pressure 2022-11-28 16:02:00 129 mm[Hg] [facility] Diastolic blood pressure 2022-11-28 16:02:00 84 mm[Hg] [facility] Heart rate 2022-11-28 16:02:00 81 /min Un[facility] Respiratory rate 2022-11-28 16:02:00 18 /min [facility] Body height 2022-11-28 16:02:00 160 cm [facility] Body weight 2022-11-28 16:02:00 101.152 kg [facility] BMI 2022-11-28 16:02:00 39.50 kg/m2 [facility] Procedures Procedure Date / Time Performed Performing Clinicia n Source POCT TEST 2023-02-13 17:45:00 Chelsea Chávez [facility] URINALYSIS 2023-02-13 17:43:00 [facility] 2023-02-13 16:38:00 [facility] COMP. METABOLIC PANEL ([id number]) 2023-02-13 16:38:00 Chelsea Chávez [facility] CBC WITH DIFF 2023-02-13 16:38:00 Chelsea [facility]AL PRO-BNP 2023-02-13 16:38:00 Chelsea Chávez [facility] CONSENT/REFUSAL FOR DIAGNOSIS AND TREATMENT 2023-02-13 15:44:31 Doctor Unassigned, [place] [facility] ASSIGNMENT OF BENEFITS 2022-11-28 15:39:56 Docto r Unassigned, [place] [facility] Encounters Start Date/Time End Date/Time Encounter Type Admission Type Attending [facility] Care Department Encounter ID Source 2024-04-05 00:00:00 2024-04-05 00:00:00 Outpatient MD AZALIA WATTS [id number] Azalia Mayes 2024-01-29 09:00:00 2024-01-29 09:00:00 Outpatient MEEK GAFFNEY [id number] Azalia Mayes 2024-01-03 00:00:00 2024-01-03 00:00:00 Outpatient MEEK GAFFNEY [id number] Azalia ping 2023-12-12 10:45:00 2023-12-12 10:45:00 Outpatient NICHOL VILLAVICENCIO [id number] Azalia Mayes 2023-10-27 00:00:00 2023-10-27 00:00:00 Outpatient MD AZALIA WATTS [id number] Azalia Mayes 2023-10-27 00:00:00 2023-10-27 00:00:00 Outpatient NICHOL VILLAVICENCIO [id number] Azalia Mayes 2023-10-26 15:00:00 2023-10-26 15:00:00 Outpatient NICHOL VILLAVICENCIO [id number] Azalia Mayes 2023-10-26 12:25:00 2023-10-26 12:25:00 Outpatient HANNAH ZARATE [id number] Azalia Mayes 2023-10-26 00:00:00 2023-10-26 00:00:00 Outpatient AZALIA ZARATE [id number] Azalia Mayes 2023-10-22 00:00:00 2023-10-22 00:00:00 Outpatient PREHONORIONICHOL Wren AZALIA AZALIA [id number] Azalia Seybyohana 2023-10-20 22:15:00 2023-10-20 22:15:00 Outpatient VENICE KENYON AZALIA ZARATE [id number] Azalia Seybold 2023-10-20 00:00:00 2023-10-20 00:00:00 Outpatient MD AZALIA WATTS [id number] Azalia Seybold 2023-10-12 00:00:00 2023-10-12 00:00:00 Outpatient PREZANICHOL Wren AZALIA ZARATE [id number] Azalia Seybold 2023-10-10 09:15:00 2023-10-10 09:15:00 Outpatient ROBB JOHN [facility]IA [facility]ARATE [id number] [facility] 2023-10-06 00:00:00 2023-10-06 00:00:00 Outpatient PREZAS, NICHOL AZALIA ZARATE [id number] Azalia Seybold 2023-10-05 00:00:00 2023-10-05 00:00:00 Outpatient PREZAS, NICHOL AZALIA ZARATE [id number] Azalia Seybold 2023-10-04 00:00:00 2023-10-04 00:00:00 Outpatient PREZAS, NICHOL AZALIA ZARATE [id number] Azalia Seybold 2023-09-25 00:00:00 2023-09-25 00:00:00 Outpatient PREZASNICHOL AZALIA ZARATE [id number] Azalia Seybold 2023-09-11 16:15:00 2023-09-11 16:15:00 Outpatient PREZASNICHOL AZALIA ZARATE [id number] Azalia Seybold 2023-02-13 09:52:00 2023-02-13 12:32:00 Emergency X CHELSEA CHÁVEZ NEYONIS ERT [id number] [facility] 2023-02-13 09:52:00 2023-02-13 12:32:00 Emergency Chelsea Chávez [facility] [id number] [facility] 2022-12-17 00:00:00 2022-12-17 00:00:00 Outpatient [email or web address]_Ka diyalcortez_S [facility] [id number] [facility] 2022-12-07 00:00:00 2022-12-07 00:00:00 [facility] [id number] [facility] 2022-11-28 11:00:00 2022-11-28 11:25:27 Office Visit Naveed Hernandez [facility] [id number] [facility] 2022-11-28 11:00:00 2022-11-28 11:25:27 Outpatient R NAVEED HERNANDEZ [facility] [id number] [facility] 2022-11-28 00:00:00 2022-11-28 00:00:00 Orders Only Doctor Unassigned, [place] [facility] [id number] [facility] Results Test Description Test Time Test Comments Results Result Co mments Source [id number] 17:25:38* Test Item Value Reference Range Interpretation Comme nts NT-proBNP (test code = 44343-1) <=125 Lab Interpretation (test cod e = 39936-9) Normal [facility] [id number] 17:25:12* Test Item Value Reference Range Interpretation Comme nts TROPONIN I (test code = 8314996176) 0.001 ng/mL <=0.034 FROILAN (test code = [...] of biotin. Lab Interpretation (test code = 63836-9) Normal [facility] MET[facility]OLIC PANEL (13979)2023-02-13 17:13:34* Test Item Value Reference Range Interpretation Comme nts NA (test code = 5612311654) 136 mmol/L 135-145 K (test code = 5997507459) 3.8 mmol/L 3.5-5.0 CL (test code = 7643205154) 105 mmol/L 98-108 CO2 TOTAL (test code = 1644128741) 25 mmol/L 23-31 AGAP (test code = 1224487604) 6 2-16 BUN (test code = 4124359599) 9 mg/dL 7-23 GLUCOSE (test code = 3313772878) 140 mg/dL 70-110 H CREATININE (test code = 5202264230) 0.54 mg/dL 0.50-1.04 TOTAL BILI (test code = 1895720953) 0.5 mg/dL 0.1-1.1 CALCIUM (test code = 4163434435) 9.0 mg/dL 8.6-10.6 T PROTEIN (test code = 2377726331) 7.8 g/dL 6.3-8.2 ALBUMIN (test code = 5382325960) 4.1 g/dL 3.5-5.0 ALK PHOS (test code = 0510426583) 106 U/L 34-122 ALTv (test code = 1742-6) 16 U/L 5-35 AST(SGOT) (test code = 4039478190) 18 U/L 13-40 eGFR (test code = 63338-1) 124.9 mL/min/1.73m2 CKD-EPI eGFR (2020). Assuming creatinine has been stable day-to-day for at least three months, the eGFR indicates Category G1 (>= 90 mL/min/1.73 m2) Lab Interpretation (test code = 54144-1) Abnormal [facility] WITH [id number] 16:59:49* Test Item Value Reference Range Interpretation [...] 32.6 g/dL 31.6-35.1 RDW-SD (test code = 05217-8) 43.8 fL 39.0-49.9 RDW-CV (test code = 788-0) 14.3 % 12.0-15.5 PLT (test code = 777-3) 294 See_Comment [Automated message] The system which generated this result transmitted reference range: 166 - 358 10*3/?L. The reference range was not used to interpret this result as normal/abnormal. MPV (test code = 37846-1) 9.5 fL 9.5-12.9 NRBC/100 WBC (test code = 5062572900) 0.0 See_Comment [Automated message] The system which generated this result transmitted reference range: 0.0 - 10.0 /100 WBCs. The reference range was not used to interpret this result as normal/abnormal. NRBC x10^3 (test code = 2040813505) See_Comment [Automated message] The system which generated this result transmitted reference range: 10*3/?L. The reference range was not used to interpret this result as normal/abnormal. GRAN MAT (NEUT) % (test code = 770-8) 77.2 % IMM GRAN % (test code = 2039928567) 0.70 % LYMPH % (test code = 736-9) 15.4 % MONO % (test code = 5905-5) 5.5 % EOS % (test code = 713-8) 0.9 % BASO % (test code = 706-2) 0.3 % GRAN MAT x10^3(ANC) (test code = 9270258486) 10.20 10*3/uL 1.88-7.09 H IMM GRAN x10^3 (test code = 9046916258) 0.09 10*3/uL 0.00-0.06 H LYMPH x10^3 (test code = 731-0) 2.03 10*3/uL 1.32-3.29 MONO x10^3 (test code = 742-7) 0.73 10*3/uL 0.33-0.92 EOS x10^3 (test code = 711-2) 0.12 10*3/uL 0.03-0.39 BASO x10^3 (test code = 704-7) 0.04 10*3/uL 0.01-0.07 Lab Interpretation (test code = 41769-2) Abnormal [facility], [id number] 08:30:05SPECIMEN NUMBER: [id number] CULTURE, URINE SPECIMEN NUMBER: [id number] SPECIMEN COMMENT: URINE SOURCE: URINE REPORT STATUS: FINAL FINAL REPORT: 07/29/2021 10-50,000 CFU/ML UROGENITAL ARIES PRESENT NO COMMON PATHOGENS UNLESS OTHERWISE INDICATED, ALL TESTING PERFORMED [facility] [address] [place] [address] ENVIRONMENTAL SERVICE AIDE: JUAN MANUEL HERNANDEZ M.D. [place] NUMBER [id number] [facility] [place] [id number] Notes Date/Time Note Provider Source 2023-02-13 12:30:55 [...] apparent distress, left with . Roche RN [facility] 2023-02-13 09:45:55 Patient states: "About a [...] 2 weeks ago. Pmhx: none Amaral RN [facility]
[2024-05-26] MEDS ORDERED: LORazepam 2 MG/ML VIAL ONE (15:06)
--- NOTE | 2024-05-26 15:50 | EDPHYS ---
Physician Documentation [facility] Name: Kelly Early Age: 33 yrs Sex: Female : 1990 Arrival Date: 05/26/2024 Time: 14:46 Bed 6 Private MD: ED Physician Akanksha Coffey HPI: 05/26 15:10 This 33 yrs old Female presents to ER via Wheelchair with complaints of sp3 Shaking. 15:10 33-year-old female with history of anxiety and depression presents to the ED with chief sp3 complaint shaking times several hours. Her last THC was over 1 week ago. She denies any pain, trauma, headache, fever, URI symptoms, chest pain, shortness of breath, abdominal pain, nausea, vomit, diarrhea, syncope, focal neurological deficit, rash, or any other signs or symptoms on ROS at this time. She did see her PCP for routine follow-up several days ago and states she had blood work done which showed no significant findings.. 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 - Infectious Disease History:: Denies. - Social history:: Smoking status: Reported history of juuling and/or vaping. ROS: 15:12 Constitutional: Negative for fever, chills, and weight loss, Eyes: Negative for injury, sp3 pain, redness, and discharge, ENT: Negative for injury, pain, and discharge, Neck: Negative for injury, pain, and swelling, Respiratory: Negative for shortness of breath, cough, wheezing, and pleuritic chest pain, Abdomen/GI: Negative for abdominal pain, nausea, vomiting, diarrhea, and constipation, Back: Negative for injury and pain, MS/Extremity: Negative for injury and deformity, Skin: Negative for injury, rash, and discoloration, Allergy/Immunology: Negative for hives, rash, and allergies, Endocrine: Negative for neck swelling, polydipsia, polyuria, polyphagia, and marked weight changes, Hematologic/Lymphatic: Negative for swollen nodes, abnormal bleeding, and unusual bruising, 15:12 All other systems are negative, Exam: 15:12 Constitutional: This is a well developed, well nourished patient who is awake, alert, sp3 and in no acute distress. Head/Face: Normocephalic, atraumatic. Eyes: Pupils equal round and reactive to light, extra-ocular motions intact. Lids and lashes normal. Conjunctiva and sclera are non-icteric and not injected. Cornea within normal limits. Periorbital areas with no swelling, redness, or edema. ENT: Nares patent. No nasal discharge, no septal abnormalities noted. External auditory canals are clear. Oropharynx with no redness, swelling, or masses, exudates, or evidence of obstruction, uvula midline. Mucous membranes moist. Neck: Trachea midline, no thyromegaly or masses palpated, and no cervical lymphadenopathy. Supple, full range of motion without nuchal rigidity, or vertebral point tenderness. No Meningismus. Chest/axilla: Normal chest wall appearance and motion. Nontender with no deformity. No lesions are appreciated. Cardiovascular: Regular rate and rhythm with a normal S1 and S2. No gallops, murmurs, or rubs. Normal PMI, no JVD. No pulse deficits. Respiratory: Lungs have equal breath sounds bilaterally, clear to auscultation and percussion. No rales, rhonchi or wheezes noted. No increased work of breathing, no retractions or nasal flaring. Abdomen/GI: Soft, non-tender, with normal bowel sounds. No distension or tympany. No guarding or rebound. No evidence of tenderness throughout. Back: No spinal tenderness. No costovertebral tenderness. Full range of motion. Skin: Warm, dry with normal turgor. Normal color with no rashes, no lesions, and no evidence of cellulitis. MS/ Extremity: Pulses equal, no cyanosis. Neurovascular intact. Full, normal range of motion. 15:12 Psych: Patient appears anxious with small bursts of hyperventilation every several minutes. Vital signs normal. No SI, HI or psychosis.. 15:17 ECG was reviewed by the Attending Physician. EKG demonstrates normal sinus rhythm at 72 sp3 bpm with normal intervals, normal QRS, normal axis, normal ST/T-segment without evidence of acute ischemia. Vital Signs: 15:05 BP 147 / 92; Pulse 95; Resp 18; Temp 97.5; Pulse Ox 100% on R/A; Weight 92.99 kg; iw Height 5 ft. 2 in. ; 15:05 Body Mass Index 37.49 (92.99 kg, 157.48 cm) iw MDM: 14:52 Medical Screening Exam initiated sp3 15:14 Data reviewed: vital signs, nurses notes, old medical records, lab test result(s), EKG. sp3 ED course: 33-year-old female with anxiety presents with shaking episodes. Differential diagnosis includes anxiety versus drug-induced. Clinically have ruled out sepsis, shock, TIA/CVA spectrum, ACS, or any other critical pathology. EKG is normal. Probable discharge once patient is improved after Ativan.. 15:49 ED course: All shaking stopped. Patient is stable. We will safely discharge home at 3 this time.. / 15:22 Order name: Glucose, Ancillary Testing; Complete Time: 15:22 EDMS 05/26 15:04 Order name: EKG; Complete Time: 15:04 sp3 05/26 15:04 Order name: Cardiac monitoring; Complete Time: 15:24 sp3 / 15:04 Order name: EKG - Nurse/Tech; Complete Time: 15:24 sp3 05/26 15:04 Order name: IV Saline Lock; Complete Time: 15:11 sp3 05/26 15:04 Order name: O2 Sat Monitoring; Complete Time: 15:11 sp3 05/26 15:04 Order name: Accucheck; Complete Time: 15:11 sp3 Administered Medications: 15:11 Drug: Ativan IVP 1 mg IVP once Route: IVP; Site: right antecubital; hb 15:55 Follow up: Response: No adverse reaction ph Disposition Summary: 05/26/24 15:50 Discharge Ordered Notes: Location: Home sp3 Condition: Stable sp3 Diagnosis - Anxiety sp3 Followup: sp3 - With: Private Physician - When: Upon discharge from the Emergency Department - Reason: Continuance of care Discharge Instructions: - Discharge Summary Sheet sp3 - Managing Anxiety, Adult sp3 Forms: - Medication Reconciliation Form sp3 - Antibiotic Education sp3 - Prescription Opioid Use sp3 - Patient Portal Instructions sp3 - Leadership Thank You Letter sp3 Signatures: Jess Marroquin RN RN iw Michelle Higuera RN RN hb Akanksha Coffey MD MD sp3 Maya Franks RN ph
--- NOTE | 2024-05-26 15:50 | ER ---
Nurse's Notes [facility] Name: Kelly Early Age: 33 yrs Sex: Female : 1990 Arrival Date: 05/26/2024 Time: 14:46 Bed 6 Private MD: Diagnosis: Anxiety Presentation: 05/26 14:48 Chief complaint: Patient states: she felt liken she was going to pass out and she can't iw stop shaking. Coronavirus screen: At this time, the client does not indicate any symptoms associated with coronavirus-19. Ebola Screen: No symptoms or risks identified at this time. Risk Assessment: Do you want to hurt yourself or someone else? Patient reports no desire to harm self or others. 14:48 Method Of Arrival: Wheelchair iw 14:52 Acuity: CYNTHIA 3 iw 15:05 Initial Sepsis Screen: Does the patient meet any 2 criteria? No. Patient's initial iw sepsis screen is negative. Does the patient have a suspected source of infection? No. Patient's initial sepsis screen is negative. Onset of symptoms was May 26, 2024. COUNSELLORS: 15:06 LMP 05/20/2024, unknown iw Historical: - Allergies: 15:05 PENICILLINS; iw - Home Meds: 15:05 Omeprazole Oral daily [Active]; iw - PMHx: 15:05 Anxiety; depressive disorder; iw - PSHx: 15:05 Tonsillectomy; iw - Immunization history:: Adult Immunizations not up to date. - Infectious Disease History:: Denies. - Social history:: Smoking status: Reported history of juuling and/or vaping. Screenin:20 [facility] ED Fall Risk Assessment (Adult) History of falling in the last 3 months, ph including since admission No falls in past 3 months (0 pts) Confusion or Disorientation No (0 pts) Intoxicated or Sedated No (0 pts) Impaired Gait No (0 pts) Mobility Assist Device Used No (0 pt) Altered Elimination No (0 pt) Score/Fall Risk Level 0 - 2 = Low Risk Oriented to surroundings, Maintained a safe environment, Hourly rounding (assess needs \T\ fall precautionary measures) done. Abuse screen: Denies threats or abuse. Denies injuries from another. Nutritional screening: No deficits noted. Tuberculosis screening: No symptoms or risk factors identified. Assessment: 15:19 General: Appears in no apparent distress. Behavior is anxious. Pain: Denies pain. ph Neuro: Level of Consciousness is awake, alert, obeys commands, Oriented to person, place, time, situation. Neuro: Reports weakness generalized. Cardiovascular: Capillary refill < 3 seconds in bilateral fingers Patient's skin is warm and dry. Respiratory: Airway is patent Respiratory effort is even, unlabored. Derm: Skin is pink, warm \T\ dry. Vital Signs: 15:05 BP 147 / 92; Pulse 95; Resp 18; Temp 97.5; Pulse Ox 100% on R/A; Weight 92.99 kg; iw Height 5 ft. 2 in. ; 15:05 Body Mass Index 37.49 (92.99 kg, 157.48 cm) iw ED Course: 14:47 Patient arrived in ED. mr 14:50 Akanksha Coffey MD is Attending Physician. sp3 14:52 Triage completed. iw 15:11 Inserted saline lock: 22 gauge in right antecubital area, using aseptic technique. hb Flushed with 10 mL NS. 15:19 Maya Franks, RN is Primary Nurse. ph 15:20 EKG done, by ED staff, reviewed by Maya Franks RN. ph 15:20 Patient has correct armband on for positive identification. Bed in low position. Call ph light in reach. Side rails up X 1. Pulse ox on. NIBP on. Door closed. Noise minimized. Warm blanket given. 15:21 Arm band placed on Patient placed in an exam room. ph 15:53 No provider procedures requiring assistance completed. ph 16:03 IV discontinued, intact, bleeding controlled, No redness/swelling at site. Pressure jb4 dressing applied. Administered Medications: 15:11 Drug: Ativan IVP 1 mg IVP once Route: IVP; Site: right antecubital; hb 15:55 Follow up: Response: No adverse reaction ph Medication: 15:20 VIS not applicable for this client. ph Outcome: 15:50 Discharge ordered by . sp3 16:03 Discharged to home via wheelchair, with friend, campos 16:03 Condition: stable 16:03 Discharge instructions given to patient, Instructed on discharge instructions, follow up and referral plans. Demonstrated understanding of instructions, follow-up care, 16:03 Patient left the ED. jb4 Signatures: Tiffanie Roche Reg Reg mr Jess Marroquin, RN RN Maya Franks, RN RN Michelle Higuera, RN RN Allen Nieves, JERRY RN jb4 Akanksha Coffey MD MD sp3
[2024-05-26 16:17] VITALS: BP 147/92; TEMP 97.5; O2SAT 100
--- NOTE | 2024-05-28 10:58 | EKG ---
Test Date: 2024-05-26 Test Time: 15:15:17 Stator Connector: PH MEASUREMENT RESULTS: Intervals: Rate: 72 IL: 132 QRSD: 92 QT: 406 QTc: 444 [place]: P: 44 IL: 132 QRS: 7 T: 18 INTERPRETIVE STATEMENTS: Normal sinus rhythm Minimal voltage criteria for LVH, may be normal variant Borderline ECG Compared to ECG 11/01/2023 14:53:10 Left ventricular hypertrophy now present Electronically Signed On 05-28-24 10:55:43 CDT by Escobar Cooper
== END 2024-05-26 16:03 | disposition home or self-care (01) ==
LOC: ER 14:46
DX: F41.9 Anxiety disorder, unspecified (principal)
CPT/HCPCS: 82947; 93005; 96374; 99284

== ENCOUNTER 2024-07-03 20:13 | Emergency (ER) | payer BC ==
--- OUTSIDE RECORDS SUMMARY | 2024-07-03 20:19 | XMS REPORT | Continuity of Care Document ---
Author Name Unknown Address [address] [facility] [place] [address] [facility] Address [address] [facility] [address] [place] [address] Care Team Providers Care Car Wash Attendant Name Role Phone REYNA CRUZ JR Primary Care Physician UnavaEDWIGE Waldron Attending Clinician Unavailable EDWIGE LOUIS Attending Clinician Unavailable Didi Daniel MA Attending Clinician Unavailab Edwige Woodard MD Attending Clinician [phone] Minda Castillo RN Attending Clinician Unavailab Marj Peñaloza MD Attending Clinician MARJ WEBSTER Attending Clinician Unavailable DEVAN HAQUE Attending Clinician Unavailable DEVAN HAQUE Attending Clinician Unavailable Devan Mckeon Attending Clinician MD SANDEE Attending Clinician Unavailab MEEK Sauer Attending Clinician Unavailable NICHOL VILLAVICENCIO Attending Clinician Unavailable LAB90 Attending Clinician Unavailable VENICE KENYON Attending Clinician Unavailab JOHN Zayas Attending Clinician Unava ilCHELSEA Almaraz Attending Clinician Unavailab Chelsea Samuel Attending Clinician [phone] [email or web address]_S Attending Clinician PROSPER Huizar Attending Clinician PROSPER Huizar Attending Clinician Mary baum Doctor Unassigned, [place] Attending Clinician U navailable [email or web address]_S Admitting Clinician Mary baum Payers Payer Name Policy Type Policy Number Effective Date Expirati on Date Source HIM [facility] BLUE ADVANTAGE O [id number] 2024 00:00:00 [facility] ALEX GAGE-C COPAY FOCUS 9 [id number] 2023 00:00:00 UMR [id number] 2020 00:00:00 Problems Condition Name Condition Details Condition Category Status Onset Date Resolution Date Last Treatment Date Treating Clinician Comments Source Acute cystitis without hematuria Acute cystitis without hematuria Disease Active 10-25 00:00: 00 Azalia Stout Externa l Abdominal pain, RUQ Abdominal pain, RUQ Disease Active 9- 00:00: 00 Azalia Stout Externa l Snoring Snoring Disease Active 9-05 00:00: 00 Azalia Mayes - Externa l Current mild episode of major depressive disorder Current mild episode of major depressive disorder Disease Active 8-16 00:00: 00 Azalia Mayes - Externa l Pes planus of both feet Pes planus of both feet Disease Active 7-22 00:00: 00 Azalia Mayes - Externa l General counseling for prescripti on of oral contracept dawson General counseling for prescripti on of oral contracept dawson Disease Active 2016-02 00:00: 00 [facility] Tobacco use disorder Tobacco use disorder Disease Active 2016-02 00:00: 00 [facility] BMI 32.0-32.9, adult BMI 32.0-32.9, adult Disease Active 2016-02 00:00: 00 [facility] Morbid obesity Morbid obesity Disease Active Azalia Mayes - Externa l Prediabete s Prediabete s Disease Active Azalia Stout Externa l Family history of diabetes mellitus (DM) Family history of diabetes mellitus (DM) Disease Active Azalia Seybold - Externa l Anxiety Anxiety Disease Active Azalia Seybold - Externa l Depression Depression Disease Active Kelly mock Seybold - Externa l Insomnia Insomnia Disease Active Khalif y Seybold - Externa l Allergies, Adverse Reactions, Alerts Allergy Name Allergy Type Status Severity Reaction(s) Onset Date Inactive Date Treating Clinician Comments Source Penicill ins Drug Intolera nce Active Unknown, Rash 09-15 00:00: 00 Other Reaction( s): Unknown - See comments Robert Ramírez Penicill in G Propensi ty to adverse reaction s Active 09-15 00:00: 00 Other Reaction( s): Unknown - See comments Azalia Burnettold - Externa l PENICILL IN DRUG INGREDI Active Unknown-Cmnt 09-15 00:00: 00 [facility] Penicill in Propensi ty to adverse reaction s Active Unknown - See comments 09-15 00:00: 00 [facility] Social History Social Habit Start Date Stop Date Quantity Comments Source History of tobacco use 2006-12-27 00:00:00 Cigarette Smoker [facility] Sexual orientation [facility] Ram[facility]rez Gender identity Tobi renita Ramírez ASSERTION Not [facility] Tobacco use and exposure 2024-07-02 00:00:00 2024-07-02 00:00:00 Smokeless tobacco non-user [facility] Alcoholic beverage intake 2024-07-02 00:00:00 2024-07-02 00:00:00 Current drinker of alcohol (finding) [facility] History of Social function 2024-06-28 00:00:00 2024-06-28 00:00:00 Debbie Ramírez Education 2023-09-11 00:00:00 2023-09-11 00:00:00 13 Azalia Mayes - External Cigarettes smoked current (pack per day) - Reported 2023-09-11 00:00:00 2023-09-11 00:00:00 Azalia Mayes - External Cigarette pack-years 2023-09-11 00:00:00 2023-09-11 00:00:00 Azalia Mayes - External Alcohol intake 2022-11-28 00:00:00 2022-11-28 00:00:00 Current drinker of alcohol (finding) [facility] Tobacco Comment 2022-11-28 00:00:00 2022-11-28 00:00:00 pack/day [facility] Alcohol Comment 2022-11-28 00:00:00 2022-11-28 00:00:00 rare [facility] Sex assigned at 1990 00:00:00 1990 00:00:00 Azalia Mayes - External Smoking Status Start Date Stop Date Source Ex-smoker 2024-07-02 00:00:00 2024-07-02 [facility] tobacco Robert Ramírez Smokes tobacco daily 2016-12-27 00:00:00 [facility] Medications Ordered Medication Name Filled Medication Name Start Date Stop Date Current Medication? Ordering Clinician Indication Dosage Frequency Signature (SIG) Comments Components Source clonazePAM (KlonoPIN) 1 MG tablet clonazePAM (KlonoPIN) 1 MG tablet 06-28 09:00: 16 Yes 1mg QD Take 1 mg by mouth 1 time each day. Robert Ramírez predniSONE (DELTASONE) tablet 50 mg 06-20 00:00: 00 06-20 00:10 :00 No 50mg 50 mg, Oral, ONCE, 1 dose, On Mon06/19/24 at 1900, TONIA [facility] cyclobenzap rine 10 mg tablet 06-19 19:12: 38 07-02 00:00 :00 No 10mg Take 1 tablet by mouth in the morning and 1 tablet at noon and 1 tablet in the evening. [facility] methylPREDN ISolone (MEDROL, DAVID,) 4 mg tablets 06-19 00:00: 00 07-02 00:00 :00 No [id number] Take by mouth SEE-INSTRU CTIONS. follow package directions [facility] cholecalcif haley 1.25 MG (85595 UT) capsule cholecalcif haley 1.25 MG (41943 UT) capsule 05-29 00:00: 00 Yes 1{capsu le} Q1W Take 1 capsule by mouth every 7 days. Robert Ramírez dicyclomine (Bentyl) 20 MG tablet dicyclomine (Bentyl) 20 MG tablet 05-21 00:00: 00 Yes 1{tbl} Q.[id number] 3D Take 1 tablet by mouth every 6 hours during the day. Robert Ramírez pantoprazol e (ProtoNix) 40 MG EC tablet pantoprazol e (ProtoNix) 40 MG EC tablet 05-21 00:00: 00 Yes 40mg Take 40 mg by mouth in the morning. Take before meals. Robert Ramírez Vortioxetin e HBr (Trintellix ) 10 MG [...] 10-19 00:00: 00 10-25 04:59 :00 No [id number] 500mg Q.5D Take 1 tablet (500 mg [...] MG oral Tablet 09-10 00:00: 00 Yes [id number] 1mg QD Take 1 tablet (1 mg total) by mouth daily as needed for anxiety. Azalia olson Semaglutide -ARIKLoi ght Management 0.25 MG/0.5ML Subcutaneou s Solution Auto-inject or 09-10 00:00: 00 10-25 00:00 :00 No [id number] .25mg Q1W Inject 0.25 mg into the skin once a week. Azalia olson NaCl 0.9% (NS) bolus infusion 1,000 mL 2022-02 16:15: 00 02-13 18:32 :00 No 1000mL at 999 mL/hr, 1,000 mL, IV Infusion, ONCE, 1 dose, On Mon02/13/23 at 1015, STAT [facility] cyclobenzap rine 10 mg tablet 2022-02 11:04: 23 Yes 10mg Take 1 tablet by mouth in the morning and 1 tablet at noon and 1 tablet in the evening. [facility] REXULTI 0.5 mg Tab 2022-02 00:00: 00 07-02 00:00 :00 No [facility] venlafaxine XR 150 mg 24 hr capsule 2022-02 0 00:00: 00 07-02 00:00 :00 No [facility] traZODone 50 mg tablet 9-16 00:00: 00 07-02 00:00 :00 No [facility] clonazePAM 1 mg tablet 10-11 00:00: 00 Yes [facility] venlafaxine XR 37.5 mg 24 hr capsule 10-11 00:00: 00 07-02 00:00 :00 No [facility] cyclobenzap rine 10 mg tablet 2016-02 15:16: 06 Yes 10mg Take 10 mg by mouth 3 (three) times daily. [facility] norgestimat e-ethinyl estradiol (SPRINTEC) 0.25-35 mg-mcg per tablet 2016-02 00:00: 00 07-02 00:00 :00 No [id number] 1{tbl} Take 1 tablet by mouth daily. [facility] Immunizations Ordered Immunization Name Filled Immunization Name Date Status Comments Source Tdap- (Boostrix, Adacel) Unknown Completed Azalia Mayes - External Vital Signs Vital Name Observation Time Observation Value Comments S our Systolic blood pressure 2024-07-02 19:14:00 138 mm[Hg] [facility] Diastolic blood pressure 2024-07-02 19:14:00 80 mm[Hg] [facility] Heart rate 2024-07-02 19:14:00 96 /min [facility] Respiratory rate 2024-07-02 19:14:00 14 /min [facility] Body height 2024-07-02 19:14:00 157.5 cm [facility] Body weight 2024-07-02 19:14:00 94.983 kg [facility] BMI 2024-07-02 19:14:00 38.30 kg/m2 [facility] Systolic blood pressure 2024-06-28 08:59:00 122 mm[Hg] [facility] Diastolic blood pressure 2024-06-28 08:59:00 88 mm[Hg] [facility] Heart rate 2024-06-28 08:59:00 88 /min Theron Rajput [facility] Body height 2024-06-28 08:59:00 160 cm Tobi Rajput [facility] Body weight 2024-06-28 08:59:00 92.987 kg Tobi rial [facility] BMI 2024-06-28 08:59:00 36.31 kg/m2 Tobi taniyal [facility] Systolic blood pressure 2024-06-28 08:59:00 122 mm[Hg] Debbie [facility] Diastolic blood pressure 2024-06-28 08:59:00 88 mm[Hg] Debbie [facility] Heart rate 2024-06-28 08:59:00 88 /min Memor ial [place] Body height 2024-06-28 08:59:00 160 cm Tobi rial [facility] Body weight 2024-06-28 08:59:00 92.987 kg Tobi rial [facility] BMI 2024-06-28 08:59:00 36.31 kg/m2 Tobi rial Regulo [facility] Systolic blood pressure 2024-06-20 00:10:03 130 mm[Hg] [facility] Diastolic blood pressure 2024-06-20 00:10:03 83 mm[Hg] [facility] Heart rate 2024-06-20 00:10:03 78 /min [facility] Body temperature 2024-06-20 00:10:03 36.56 Nadeen [facility] Respiratory rate 2024-06-20 00:10:03 16 /min [facility] Oxygen saturation in Arterial blood by Pulse oximetry 2024-06-20 00:10:03 99 /min [facility] Body height 2024-06-19 21:50:00 157.5 cm [facility] Body weight 2024-06-19 21:50:00 92.987 kg [facility] BMI 2024-06-19 21:50:00 37.49 kg/m2 [facility] Systolic blood pressure 2024-06-14 09:41:00 128 mm[Hg] Debbie [facility] Diastolic blood pressure 2024-06-14 09:41:00 88 mm[Hg] [facility] Her [facility] Heart rate 2024-06-14 09:41:00 63 /min Memor ial [facility] [facility] Body height 2024-06-14 09:41:00 160 cm Tobi rial [facility] Body weight 2024-06-14 09:41:00 92.987 kg Tobi rial [facility] BMI 2024-06-14 09:41:00 36.31 kg/m2 Tobi maravilla [facility] Systolic blood pressure 2024-06-14 09:41:00 128 mm[Hg] [facility] Diastolic blood pressure 2024-06-14 09:41:00 88 mm[Hg] [facility] Her foster [facility] Heart rate 2024-06-14 09:41:00 63 /min [facility] Body height 2024-06-14 09:41:[address] [facility] Body weight 2024-06-14 09:41:00 92.987 kg Tobi maravilla [facility] BMI 2024-06-14 09:41:00 36.31 kg/m2 [facility] Body height 2023-10-26 20:00:00 157.5 cm Luz [...] height 2023-09-11 21:10:00 157.5 cm Luz Elena Mayes - External Body weight 2023-09-11 21:10:00 102.059 kg Luz Elena Mayes - External BMI 2023-09-11 21:10:00 41.15 kg/m2 Luz Elena samuel Seybold - External Oxygen saturation in Arterial blood by Pulse oximetry 2023-09-11 21:10:00 100 /min Azalia Burnetto ld - External Systolic blood pressure 2023-02-13 18:30:00 111 mm[Hg] [facility] Diastolic blood pressure 2023-02-13 18:30:00 56 mm[Hg] [facility] Heart rate 2023-02-13 18:30:00 89 /min Unive [facility] Respiratory rate 2023-02-13 18:30:00 16 /min [facility] Oxygen saturation in Arterial blood by Pulse oximetry 2023-02-13 18:30:00 98 /min [facility] Body temperature 2023-02-13 15:48:00 36.78 Nadeen [facility] Body height 2023-02-13 15:48:00 157.5 cm [facility] Body weight 2023-02-13 15:48:00 108.863 kg [facility] BMI 2023-02-13 15:48:00 43.90 kg/m2 [facility] Systolic blood pressure 2022-11-28 16:02:00 129 mm[Hg] [facility] Diastolic blood pressure 2022-11-28 16:02:00 84 mm[Hg] [facility] Heart rate 2022-11-28 16:02:00 81 /[facility] 2022-11-28 16:02:00 18 /min [facility] Body height 2022-11-28 16:02:00 160 cm [facility] Body weight 2022-11-28 16:02:00 101.152 kg [facility] BMI 2022-11-28 16:02:00 39.50 kg/m2 [facility] Procedures Procedure Date / Time Performed Performing Clinician Source PAP SMEAR-LIQUID BASED-CP 2024-07-02 20:06:00 Adum, Edwige Alexandra [facility] POCT TEST 2024-07-02 00:00:00 Adum, Edwige Alexandra [facility] Sedimentation Rate 2024-06-28 00:00:00 [facility] C-Reactive Protein 2024-06-28 00:00:00 [facility] Complete Blood Count w/Diff and Platelet 2024-06-28 00:00:00 [facility] Comprehensive Metabolic Panel 2024-06-28 00:00:00 [facility] DNA Antibody (Double-stranded) 2024-06-28 00:00:00 [facility] C4 Complement 2024-06-28 00:00:00 [facility] C3 Complement 2024-06-28 00:00:00 [facility] Urinalysis Microscopic 2024-06-28 00:00:00 [facility] Protein and Creatinine Random Urine with Ratio 2024-06-28 00:00:00 [facility] EKG-12 LEAD 2024-06-20 00:09:26 Devan Haque [facility] TROPONIN I 2024-06-19 22:16:00 Devan Haque [facility] COMP. METABOLIC PANEL ([id number]) 2024-06-19 22:16:00 Devan Haque [facility] SEDIMENTATION RATE 2024-06-19 22:16:00 Devan Haque [facility] CBC WITH DIFF 2024-06-19 22:16:00 Devan Haque [facility] URINALYSIS 2024-06-19 22:16:00 Devan Haque [facility] N-TERMINAL PRO-BNP 2024-06-19 22:16:00 Devan Haque [facility] POCT TEST 2024-06-19 22:15:00 Devan Haque [facility] AVISE - Miscellaneous (External) Test 2024-06-14 00:00:00 [facility] Protein and Creatinine Random Urine with Ratio 2024-06-14 00:00:00 [facility] Urinalysis w/Reflex microscopic 2024-06-14 00:00:00 [facility] Iron + transferrin + TIBC 2024-06-14 00:00:00 [facility] Thyroid Stimulating Hormone w/ Reflex Free T4 2024-06-14 00:00:00 [facility] XR chest 2 views 2024-06-14 00:00:00 Tobi maravilla [facility] POCT TEST 2023-02-13 17:45:00 Chelsea Chávez [facility] URINALYSIS 2023-02-13 17:43:00 [facility] 2023-02-13 16:38:00 Chelsea Chávez Un [facility] COMP. METABOLIC PANEL ([id number]) 2023-02-13 16:38:00 Chelsea Chávez [facility] CBC WITH DIFF 2023-02-13 16:38:00 Chelsea [facility] N-TERMINAL PRO-BNP 2023-02-13 16:38:00 Chelsae Chávez [facility] CONSENT/REFUSAL FOR DIAGNOSIS AND TREATMENT 2023-02-13 15:44:31 Doctor Unassigned, [place] [facility] ASSIGNMENT OF BENEFITS 2022-11-28 15:39:56 Docto r Unassigned, [place] [facility] Encounters Start Date/Time End Date/Time Encounter Type Admission Type Attending Clinicians Care Facility Care Department Encounter ID Source 2024-07-03 00:00:00 2024-07-03 13:16:29 Telephone Didi Daniel Jocelyn Rheumatol [facility] 1.2.840.114 350.1.13.70 8.2.7.2.686 [id number] Robert olson [facility] 2024-07-02 14:00:00 2024-07-02 15:17:19 Outpatient R ADUMEDWIGE VIVIAN [facility] [id number] [facility] 2024-07-02 14:00:00 2024-07-02 15:17:19 Office Visit Kanika Edwige Alexandra [facility] 1.2.840.114 350.1.13.10 4.2.7.2.686 [id number] [facility] 2024-07-01 00:00:00 2024-07-01 17:19:03 Nurse Triage Minda Castillo Katelyn D [facility] 1.2.840.114 350.1.13.10 4.2.7.2.686 [id number] [facility] 2024-06-28 09:00:00 2024-06-28 09:45:55 Consult Marj Webster Rheumatol [facility] 1.2.840.114 350.1.13.70 8.2.7.2.686 [id number] Robert Rajput [facility] 2024-06-28 08:58:44 2024-06-28 09:45:55 Outpatient MARJ WE[facility]STER [facility] [id number] [facility] 2024-06-19 16:54:00 2024-06-19 19:12:00 Emergency X DEVAN HAQUE ERICCA [facility] ERT [id number] [facility] 2024-06-19 16:54:00 2024-06-19 19:12:00 Emergency Devan Haque [facility] 1.2.840.114 350.1.13.10 4.2.7.2.686 [id number] [facility] 2024-06-19 00:00:00 2024-06-19 15:35:05 Telephone Marj Webster Rheumatol [facility] 1.2.840.114 350.1.13.70 8.2.7.2.686 [id number] Robert Rajput [facility] 2024-06-14 10:00:00 2024-06-14 10:22:41 Consult Marj Webster Rheumatol [facility] 1.2.840.114 350.1.13.70 8.2.7.2.686 [id number] Robert Rajput [facility] 2024-06-14 09:26:25 2024-06-14 10:22:41 Outpatient Elective MARJ WEBSTER [facility] [id number] EOUT 2024-04-05 00:00:00 2024-04-05 00:00:00 Outpatient MD AZALIA WATTS [id number] Azalia Mayes 2024-01-29 09:00:00 2024-01-29 09:00:00 Outpatient MEEK GAFFNEY [id number] Azalia Mayes 2024-01-03 00:00:00 2024-01-03 00:00:00 Outpatient MEEK GAFFNEY [id number] Azalia ping 2023-12-12 10:45:00 2023-12-12 10:45:00 Outpatient NICHOL VILLAVICENCIO [id number] Azalia Mayes 2023-10-27 00:00:00 2023-10-27 00:00:00 Outpatient MD AZALIA WATTS [id number] Azalia Mayes 2023-10-27 00:00:00 2023-10-27 00:00:00 Outpatient NICHOL VILLAVICENCIO [id number] Azalia Mayes 2023-10-26 15:00:00 2023-10-26 15:00:00 Outpatient NICHOL VILLAVICENCIO [id number] Azalia Mayes 2023-10-26 12:25:00 2023-10-26 12:25:00 Outpatient HANNAH ZARATE [id number] Azalia Mayes 2023-10-26 00:00:00 2023-10-26 00:00:00 Outpatient AZALIA ZARATE [id number] Azalia Mayes 2023-10-22 00:00:00 2023-10-22 00:00:00 Outpatient NICHOL VILLAVICENCIO AZALIA [id number] Azalia Seybold 2023-10-20 22:15:00 2023-10-20 22:15:00 Outpatient VENICE KENYON AZALIA ZARATE [id number] Azalia Seybold 2023-10-20 00:00:00 2023-10-20 00:00:00 Outpatient MD AZALIA WATTS [id number] Azalia Seybold 2023-10-12 00:00:00 2023-10-12 00:00:00 Outpatient PREZANICHOL Wren AZALIA ZARATE [id number] Azalia Seybold 2023-10-10 09:15:00 2023-10-10 09:15:00 Outpatient ROBBJOHN AZALIA ZARATE [id number] Azalia Seybold 2023-10-06 00:00:00 2023-10-06 00:00:00 Outpatient PREZASNICHOL [facility]IA ZARATE [id number] [facility] 2023-10-05 00:00:00 2023-10-05 00:00:00 Outpatient PREZASNICHOL AZALIA ZARATE [id number] Azalia Seybold 2023-10-04 00:00:00 2023-10-04 00:00:00 Outpatient PREZASNICHOL AZALIA ZARATE [id number] Azalia Seybold 2023-09-25 00:00:00 2023-09-25 00:00:00 Outpatient PREZASNICHOL AZ[facility]IA ZARATE [id number] [facility] 2023-09-11 16:15:00 2023-09-11 16:15:00 Outpatient PREZASNICHOL AZALIA ZARATE [id number] Azalia Seybold 2023-02-13 09:52:00 2023-02-13 12:32:00 Emergency X FRANSISCACYNTHIACHELSEA ERT [id number] [facility] 2023-02-13 09:52:00 2023-02-13 12:32:00 Emergency FransiscaValeria salguerojessica Hernandez [facility] 1.2.840.114 350.1.13.10 4.2.7.2.686 [id number] [facility] 2022-12-17 00:00:00 2022-12-17 00:00:00 Outpatient GC_GCBZW_Ka tere_Holger [facility] [id number] [facility] 2022-12-07 00:00:00 2022-12-07 00:00:00 Outpatient R BREAPROSPER MCGINNIS [facility] [id number] [facility] 2022-11-28 11:00:00 2022-11-28 11:25:27 Office Visit Prosper Hernandez [facility] 1..840.114 350.1.13.10 4.2.7.2.686 [id number] [facility] 2022-11-28 11:00:00 2022-11-28 11:25:27 Outpatient R PROSPER HERNANDEZ ANTHONYIRENAJAYNERAHEL [facility] [id number] [facility] 2022-11-28 00:00:00 2022-11-28 00:00:00 Orders Only Doctor Unassigned, [place] [facility] 1.2.840.114 350.1.13.10 4.2.7.2.686 [id number] [facility] Results Test Description Test Time Test Comments Results Result Co mments Source [id number] 23:19:43* Test Item Value Reference Range Interpretation Comme nts TROPONIN I (test code = 7842279028) 0.004 ng/mL <=0.034 FROILAN (test code = FROILAN) [...] of biotin. Lab Interpretation (test code = 27997-6) Normal [facility] [id number] 23:17:25* Test Item Value Reference Range Interpretation Comme nts NT-proBNP (test code = 67145-1) 27 pg/mL <=125 Lab Interpretation (test cod e = 53179-6) Normal [facility] Center[facility]ed[facility] [id number] 23:15:23* Test Item Value Reference Range Interpretation Comme nts ESR (test code = 85229-4) 17 0-20 Lab Interpretation (test cod e = 51149-3) Normal [facility] MET[facility]OLIC PANEL (03848)2024-06-19 23:09:40* Test Item Value Reference Range Interpretation Comme nts NA (test code = 1745025495) 136 mmol/L 135-145 K (test code = 7958987455) 4.4 mmol/L 3.5-5.0 CL (test code = 4826300239) 103 mmol/L 98-108 CO2 TOTAL (test code = 5374586890) 24 mmol/L 23-31 AGAP (test code = 9932135614) 9 2-16 BUN (test code = 8738345880) 9 mg/dL 7-23 GLUCOSE (test code = 7552937258) 100 mg/dL 70-110 CREATININE (test code = 2160-0) 0.55 mg/dL 0.50-1.04 TOTAL BILI (test code = 6636734025) 0.7 mg/dL 0.1-1.1 CALCIUM (test code = 5074458304) 8.6 mg/dL 8.6-10.6 T PROTEIN (test code = 0166391150) 8.5 g/dL 6.3-8.2 H ALBUMIN (test code = 8395607393) 4.5 g/dL 3.5-5.0 ALK PHOS (test code = 8147927344) 74 U/L 34-122 ALTv (test code = 1742-6) 12 U/L 5-35 AST(SGOT) (test code = 5642716593) 26 U/L 13-40 eGFR (test code = 46719-2) 123.5 mL/min/1.73m2 CKD-EPI eGFR (2020). Assuming creatinine has been stable day-to-day for at least three months, the eGFR indicates Category G1 (>= 90 mL/min/1.73 m2) Lab Interpretation (test code = 07211-8) Abnormal [facility] WITH [id number] 22:54:04* Test Item Value Reference Range Interpretation Comme nts WBC (test code = 6690-2) 11.62 4.30-11.10 H RBC (test code = 789-8) 4.98 3.93-5.25 HGB (test code = 718-7) 12.4 g/dL 11.6-15.0 HCT (test code = 4544-3) 39.9 % 35.7-45.2 MCV (test code = 787-2) 80.1 fL 80.6-95.5 L MCH (test code = 785-6) 24.9 pg 25.9-32.8 L MCHC (test code = 786-4) 31.1 g/dL 31.6-35.1 L RDW-SD (test code = 88226-7) 46.5 fL 39.0-49.9 RDW-CV (test code = 788-0) 16.2 % 12.0-15.5 H PLT (test code = 777-3) 347 166-358 MPV (test code = 60414-6) 10.1 fL 9.5-12.9 NRBC/100 WBC (test code = 2197917349) 0 0.0-10.0 NRBC x10^3 (test code = 1694671669) See_Comment [Automated messa ge] The system which generated this result transmitted reference range: 10*3/?L. The reference range was not used to interpret this result as normal/abnormal. GRAN MAT (NEUT) % (test code = 770-8) 60.8 % IMM GRAN % (test code = 5172478479) 0.4 % LYMPH % (test code = 736-9) 30.9 % MONO % (test code = 5905-5) 6 % EOS % (test code = 713-8) 1.5 % BASO % (test code = 706-2) 0.4 % GRAN MAT x10^3(ANC) (test code = 8787527242) 7.06 10*3/uL 1.88-7.09 IMM GRAN x10^3 (test code = 7285274183) 0.05 10*3/uL 0.00-0.06 LYMPH x10^3 (test code = 731-0) 3.59 10*3/uL 1.32-3.29 H MONO x10^3 (test code = 742-7) 0.7 10*3/uL 0.33-0.92 EOS x10^3 (test code = 711-2) 0.17 10*3/uL 0.03-0.39 BASO x10^3 (test code = 704-7) 0.05 10*3/uL 0.01-0.07 Lab Interpretation (test code = 16042-9) Abnormal [facility] [id number] 22:18:00* Test Item Value Reference Range Interpretation Comme nts POCT PREG (test code = 1605) Negative On board controls acceptable with C Line (test code = 3574) Yes POCT PREG LOT # (test code = 3575) [id number] POCT PREG TEST DATE ( test code = 3576) 09-12-2025 Lab Interpretation (test cod e = 73475-2) Normal [facility] [id number] 17:45:00* Test Item Value Reference Range Interpretation Comme nts POCT PREG (test code = 1605) Negative On board controls acceptable with C Line (test code = 3574) Yes POCT PREG LOT # (test code = 3575) HCG [id number] POCT PREG TEST DATE (test code = 3576) 04/30/2024 Lab Interpretation (test cod e = 81950-3) [id number] 17:25:38* Test Item Value Reference Range Interpretation Comme nts NT-proBNP (test code = 76072-1) <=125 Lab Interpretation (test cod e = 81404-8) [id number] 17:25:12* Test Item Value Reference Range Interpretation Comme nts TROPONIN I (test code = 0023105672) 0.001 ng/mL <=0.034 FROILAN (test code = [...] of biotin. Lab Interpretation (test code = 91661-6) Normal [facility]. METABOLIC PANEL (08818)2023-02-13 17:13:34* Test Item Value Reference Range Interpretation Comme nts NA (test code = 2605342752) 136 mmol/L 135-145 K (test code = 2355156830) 3.8 mmol/L 3.5-5.0 CL (test code = 3826840153) 105 mmol/L 98-108 CO2 TOTAL (test code = 1638296369) 25 mmol/L 23-31 AGAP (test code = 0585928608) 6 2-16 BUN (test code = 1498976405) 9 mg/dL 7-23 GLUCOSE (test code = 4497337166) 140 mg/dL 70-110 H CREATININE (test code = 5097629995) 0.54 mg/dL 0.50-1.04 TOTAL BILI (test code = 8843910004) 0.5 mg/dL 0.1-1.1 CALCIUM (test code = 3582809171) 9.0 mg/dL 8.6-10.6 T PROTEIN (test code = 0673026776) 7.8 g/dL 6.3-8.2 ALBUMIN (test code = 5067882396) 4.1 g/dL 3.5-5.0 ALK PHOS (test code = 6115245936) 106 U/L 34-122 ALTv (test code = 1742-6) 16 U/L 5-35 AST(SGOT) (test code = 6169728106) 18 U/L 13-40 eGFR (test code = 26469-5) 124.9 mL/min/1.73m2 CKD-EPI eGFR (2020). Assuming creatinine has been stable day-to-day for at least three months, the eGFR indicates Category G1 (>= 90 mL/min/1.73 m2) Lab Interpretation (test code = 11903-1) Abnormal [facility] WITH [id number] 16:59:49* Test Item Value Reference Range Interpretation [...] 32.6 g/dL 31.6-35.1 RDW-SD (test code = 34993-5) 43.8 fL 39.0-49.9 RDW-CV (test code = 788-0) 14.3 % 12.0-15.5 PLT (test code = 777-3) 294 See_Comment [Automated message] The system which generated this result transmitted reference range: 166 - 358 10*3/?L. The reference range was not used to interpret this result as normal/abnormal. MPV (test code = 13908-8) 9.5 fL 9.5-12.9 NRBC/100 WBC (test code = 3826245022) 0.0 See_Comment [Automated message] The system which generated this result transmitted reference range: 0.0 - 10.0 /100 WBCs. The reference range was not used to interpret this result as normal/abnormal. NRBC x10^3 (test code = 5926672240) See_Comment [Automated message] The system which generated this result transmitted reference range: 10*3/?L. The reference range was not used to interpret this result as normal/abnormal. GRAN MAT (NEUT) % (test code = 770-8) 77.2 % IMM GRAN % (test code = 3513084964) 0.70 % LYMPH % (test code = 736-9) 15.4 % MONO % (test code = 5905-5) 5.5 % EOS % (test code = 713-8) 0.9 % BASO % (test code = 706-2) 0.3 % GRAN MAT x10^3(ANC) (test code = 9067644380) 10.20 10*3/uL 1.88-7.09 H IMM GRAN x10^3 (test code = 5625223694) 0.09 10*3/uL 0.00-0.06 H LYMPH x10^3 (test code = 731-0) 2.03 10*3/uL 1.32-3.29 MONO x10^3 (test code = 742-7) 0.73 10*3/uL 0.33-0.92 EOS x10^3 (test code = 711-2) 0.12 10*3/uL 0.03-0.39 BASO x10^3 (test code = 704-7) 0.04 10*3/uL 0.01-0.07 Lab Interpretation (test code = 53502-7) Abnormal [facility], [id number] 08:30:05SPECIMEN NUMBER: [id number] CULTURE, URINE SPECIMEN NUMBER: [id number] SPECIMEN COMMENT: URINE SOURCE: URINE REPORT STATUS: FINAL FINAL REPORT: 07/29/2021 10-50,000 CFU/ML UROGENITAL ARIES PRESENT NO COMMON PATHOGENS UNLESS OTHERWISE INDICATED, ALL TESTING PERFORMED [facility] [address] [place] [address] [employer] MANAGER: Michael BERUMEN NUMBER [id number] [facility] [place] [id number] Notes Upcoming Encounters Date/Time Note Provider Source Health Maintenance Due Date Last Done Comments Varicella Vaccines (1 of 2 - 13+ 2-dose series) 2002 Hepatitis B Vaccines (1 of 3 - 19+ 3-dose series) 2008 Pap Smear 2010 Annual Physical 11/29/2023 11/28/2022, 12/27/2016 Influenza Vaccine (Season Ended) 2024 DTaP/Tdap/Td Vaccines (2 - T d or Tdap) 09/23/2027 09/22/2017 Cervical Cancer Screening 11/29/2027 HPV/Cotest 11/29/2027 11/28/2022 Lipid Panel 10/25/2028 10/26/2023 Respiratory Syncytial Virus (RSV) Adult Series (1 - 1-dose 75+ series) 2064 HIB Vaccines Aged Out No longer eligi ble based on patient's age to complete this topic HPV Vaccines Aged Out No longer eligi ble based on patient's age to complete this topic Hepatitis A Vaccines Aged Out No long er eligible based on patient's age to complete this topic IPV Vaccines Aged Out No longer eligi ble based on patient's age to complete this topic Meningococcal Vaccine Aged Out No gracie joey eligible based on patient's age to complete this topic Pneumococcal Vaccine: Pediatrics (0 to 5 Years) and At-Risk Patients (6 to 64 Years) Aged Out No longer eligible b ased on patient's age to complete this topic Rotavirus Vaccines Aged Out No longer eligible based on patient's age to complete this topic [facility] Cvlhwbj1634-03-04 13:16:37 [facility] Tyuwfss5589-42-92 12:01:33 Pt called saying her pcp is not wanting to refer her to a hemologist looks like this was recommended at the last visit did let pt know we usually dont give out referrals as those come from PCP was wondering if their was anything that can be done in this scenario [facility] Awwplls5159-24-15 16:50:00 Regarding: Fainting spotting between last period x 11days, anemic, ----- Message from Patient Shear Scrapman sent at 07/01/2024 4:50 PM CDT ----- Kelly Prince is a 33 year old female Patient Specific Symptoms- pt almost fainted while making an appointment,spotting between last period x 11days, anemic, He took the phone and is taking her up stairs Minda Castillo RNUT - Zegxfz2343-41-39 16:50:00 Adult Triage Assessment Last Clinic Visit: 06/19/24, ER, near syncope Primary Symptom: patient reports feeling like she is going to pass out, and is currently lying back in car and still feels weak Onset / Duration: 1 month consistently Location / Description: neuro Pain / Severity: 0/10 Associated Symptoms: reports that her iron levels have come back low, but supplements have not helped. Denies N/V, cannot be up for more than 20 minutes. Denies dizziness Fever / Method: denies fever, check temperature and BP daily per Hydration: normal PO intake, reports drinking 1 24 oz gatorade bottle, reports diarrhea x 2, denies urinary changes Treatment so far: recently completed steroid dose pack last time in the ER. Currently taking iron supplements and vitamin D supplements. Effect on ADL's: moderate LMP: spotting in between periods, currently spotting Pre-existing condition / Immunocompromised: tobacco use disorder, anxiety, depression, Kelly Prince is a 33 year old female whose is calling today regarding patient's generalized weakness/fatigue x 1 month. reports that she has been seen by rheumatology and multiple ERs and referred to OBGYN. Patient has made an appointment with OBGYN clinic tomorrow afternoon. and patient deny any acute changes in symptoms recently, and no loss of consciousness. Patient endorses that she has been diagnosed with markers in blood to determine she has autoimmune disorder, but does not know which and has not received treatment. Patient reports x 2 episodes of diarrhea today, and decreased liquids. Assessment and triage completed per weakness (generalized) protocol. Educated on emergent symptoms, and advised to continue to see the provider in clinic tomorrow as scheduled. Advised to call Access center back 12/09 with questions/concerns. Patient and verbalizes understanding and agrees to follow plan of care. Minda Castillo RN Reason for Disposition [1] MODERATE weakness (i.e., interferes with work, school, normal activities) AND [2] persists > 3 days Protocols used: Weakness (Generalized) and Rhqpfyw-RSRAJ-MG [facility]88[facility]87-57 16:50:00 Pt is scheduled in clinic today @ 1400. Caryl Turcios [facility] HospitalSeguub6545-76-69 11:17:23* * Consultation (Routine) - Authorized Specialty Diagnoses / Procedures Referred By Dakota t Referred To Contact Rheumatology Diagnoses Lupus anticoagulant syndrome Procedures DE OFFICE/OP CONSLTJ NEW/EST PT MOD MDM 40 MINUTES Reyna Cruz Jr., MD [address] [facility] [address] [place] [address] Phone: tel: [place]: [place] [id number] [facility] [address] [place] [address] Phone: tel: fax: Referral ID Status Reason Start Date Expiration Date V isits Requested Visits Authorized [id number] Authorized 06/13/2024 12/10/2024 30 30 [facility]32-69-27 11:17:23* Marj Webster MD - 06/28/2024 9:00 AM CDT Subjective Patient ID: Kelly Prince is a 33 y.o. female who presents for Follow-up for +RAEANN, +dsDNA. HPI Patient with no PMH presents for eval of +RAEANN, +dsDNA. 2 wks ago, has episode of shakiness and feels like passing out, with nausea/diarrhea, seen at ED, was told anxiety, and was given lorazepam, started on dicyclomine and pantoprazole by PCP, she felt better. A few days after, noticed extreme fatigue. Having troubles to manage daily activities, seen PCP, had lab eval which showed +RAEANN 1:40 nuclear, homogeneous; Elevated dsDNA 131; neg SM/GRAPHITE PAN DRIER TENDER/chromatin; 05/2024 lab showed neg Cr/LFT, neg WBC/plt, hgb 11.5. low vitD 17. Also noticed palpitation for the past week, occ resting chest pain, not associated with deep inspiration. Occ resting shortness of breath. Reports ear ringing with sensitivity to loud noise. Also noticed able hear heart beat in her Left ear. Seen ENT and was told fine. Further eval showed: 05/2024 AVISE showed: Neg C3/C4 +RAEANN 1:80 homogeneous, +dsDNA 346 not confirmed by richard cortes. Neg rest of EDINSON panel, RA panel. +antiphosphoatidylserine IgM 40, Weak + CLP IgM/IgG, neg rest of APS panel. 05/2023 chest x ray: unremarkable. 06/2024 lab showed low iron sat 8%, low serum iron, neg TSH, neg UA/UPCR Rheum ROS is neg for fever, unintentional wt loss, photosensitivity, patchy hair loss, skin rash, psoriasis, sausage digits, recurrent mouth sores, eye inflammation, dry eyes, dry mouth, chest pain, shortness of breath, recurrent blood in stool, blood clots, Raynauds, skin thickening, numbness or weakness, history of lung or kidney disease, family history of autoimmune disease.. Current Outpatient Medications on File Prior to Visit Medication Sig Dispense Refill cholecalciferol 1.25 MG (58824 UT) capsule Take 1 capsule by mouth every 7 days. clonazePAM (KlonoPIN) 1 MG tablet Take 1 mg by mouth 1 time each day. dicyclomine (Bentyl) 20 MG tablet Take 1 tablet by mouth every 6 hours during the day. pantoprazole (ProtoNix) 40 MG EC tablet Take 40 mg by mouth in the morning. Take before meals. No current facility-administered medications on file prior to visit. History reviewed. No pertinent past medical history. History reviewed. No pertinent surgical history. Family History: Problem Relation Name Age of Onset Diabetes Mother Hypertension Mother Stroke Father Diabetes Father Hypertension Father Social History Socioeconomic History Marital status: Spouse name: Not on file Number of children: Not on file Years of education: Not on file Highest education level: Not on file Occupational History Not on file Tobacco Use Smoking status: Never Smokeless tobacco: Never Substance and Sexual Activity Alcohol use: Never Drug use: Never Sexual activity: Yes Partners: Male control/protection: None Other Topics Concern Not on file Social History Narrative Not on file Social Drivers of Health Financial Resource Strain: Not on file Food Insecurity: Not on file Transportation Needs: Not on file Physical Activity: Not on file Stress: Not on file Social Connections: Not on file Intimate Partner Violence: Not on file Housing Stability: Not on file Allergies Allergen Reactions Penicillins Unknown and Rash Other Reaction(s): Unknown - See comments Review of Systems Constitutional: Positive for fatigue. HENT: Negative. Eyes: Negative. Respiratory: Positive for shortness of breath. Cardiovascular: Positive for chest pain. Gastrointestinal: Negative. Endocrine: Negative. Genitourinary: Negative. Musculoskeletal: Negative. Skin: Negative. Allergic/Immunologic: Negative. Neurological: Positive for light-headedness. Hematological: Negative. Psychiatric/Behavioral: Negative. Objective Physical Exam: There is currently no information documented on the homunculus. Go to the Rheumatology activity and complete the homunculus joint exam. Assessment & Plan Patient ID: Kelly Prince is a 33 y.o. female who presents for Follow-up for +RAEANN, +dsDNA. Acute onset of myriad of symptoms(intense fatigue, shakiness, near syncope) in a young female with +RAEANN low titer, +dsDNA, benign exam. Lab showing anemia, neg Cr/LFT/WBC/plt. Further eval showed iron deficiency, AVISE panel showed +RAEANN, +dsDNA, neg other EDINSON panel. Assessment & Plan Positive RAEANN (antinuclear antibody) +RAEANN, +dsDNA in a young female with acute onset of symptoms of fatigue, shakiness, near syncope with labs showing iron deficiency. Benign exam. Neg UA/UPCR/C3/C4. Suspect incidental finding. Will monitor for now, recommend hem/onc eval to correct GRZEGORZ given fatigue/near syncope and reeval in 3 months. Will hold off on medication. Ds DNA antibody positive As above. Monitor for now and eval with hematology. Reeval in 3 months.Labs before next visit. Orders: Sedimentation Rate; Future C-Reactive Protein; Future Complete Blood Count w/Diff and Platelet; Future Comprehensive Metabolic Panel; Future DNA Antibody (Double-stranded); Future C4 Complement; Future C3 Complement; Future Urinalysis Microscopic; Future Protein and Creatinine Random Urine with Ratio; Future Iron deficiency anemia due to chronic blood lossRecommend hem/onc eval for iron infusion, recommend ELECT[employer]CH[employer]IC eval for heavy menses. Other fatigue As above. Suspect related with iron deficiency. Low vitamin D level Continue with vitD. Follow up: lab, 3M, hem eval. Management options were discussed. Answered all questions. Side effects of medications were discussed. Reviewed labs and diagnostics with patient. Pt to continue to follow up with PCP for routine health evaluation Marj Webster, [facility]2025-05-09 11:17:23Upcoming Encounters Scheduled Orders Name Type Priority Associated Diagnoses Orde r Schedule Sedimentation Rate Lab Routine Ds DNA an tibody positive Expected: 06/28/2024 (Approximate), Expires: 06/28/2025 C-Reactive Protein Lab Routine Ds DNA an tibody positive Expected: 06/28/2024 (Approximate), Expires: 06/28/2025 Complete Blood Count w/Diff and Platelet Lab Routine Ds DNA antibody positive Expected: 06/28/2024 (Approximate), Expires: 06/28/2025 Comprehensive Metabolic Panel Lab Routine Ds DNA antibody positive Expected: 06/28/2024 (Approximate), Expires: 06/28/2025 DNA Antibody (Double-stranded) Lab Routine Ds DNA antibody positive Expected: 06/28/2024 (Approximate), Expires: 06/28/2025 C4 Complement Lab Routine Ds DNA antibod y positive Expected: 06/28/2024 (Approximate), Expires: 06/28/2025 C3 Complement Lab Routine Ds DNA antibod y positive Expected: 06/28/2024 (Approximate), Expires: 06/28/2025 Urinalysis Microscopic Lab Routine Ds DN A antibody positive Expected: 06/28/2024 (Approximate), Expires: 06/28/2025 Protein and Creatinine Random Urine with Ratio Lab Routine Ds DNA antibody positive Expected: 06/28/2024 (Approximate), Expires: 06/28/2025 Health Maintenance Due Date Last Done Comments Varicella Vaccines (1 of 2 - 13+ 2-dose series) 2002 Hepatitis B Vaccines (1 of 3 - 19+ 3-dose series) 2008 Pap Smear 2010 Annual Physical 11/29/2023 11/28/2022, 12/27/2016 Influenza Vaccine (Season Ended) 2024 DTaP/Tdap/Td Vaccines (2 - T d or Tdap) 09/23/2027 09/22/2017 Cervical Cancer Screening 11/29/2027 HPV/Cotest 11/29/2027 11/28/2022 Lipid Panel 10/25/2028 10/26/2023 Respiratory Syncytial Virus (RSV) Adult Series (1 - 1-dose 75+ series) 2064 HIB Vaccines Aged Out No longer eligi ble based on patient's age to complete this topic HPV Vaccines Aged Out No longer eligi ble based on patient's age to complete this topic Hepatitis A Vaccines Aged Out No long er eligible based on patient's age to complete this topic IPV Vaccines Aged Out No longer eligi ble based on patient's age to complete this topic Meningococcal Vaccine Aged Out No gracie joey eligible based on patient's age to complete this topic Pneumococcal Vaccine: Pediatrics (0 to 5 Years) and At-Risk Patients (6 to 64 Years) Aged Out No longer eligible b ased on patient's age to complete this topic Rotavirus Vaccines Aged Out No longer eligible based on patient's age to complete this topic [facility]ub[facility]vv9939[facility] 11:17:23 Diagnosis Positive RAEANN (antinuclear antibody) - Primary Other and unspecified nonspecific immunological findings Ds DNA antibody positive Iron deficiency anemia due to chronic blood loss Iron deficiency anemia secondary to blood loss (chronic) Other fatigue Low vitamin D level [facility] CenterAjyyvpp6046-96-06 11:17:23 [place] 943925-04-30 19:11:45 Pt given printed and verbal discharge instructions regarding near syncope, encouraged hydration, 1 Prescriptions sent. Pt verbalized understanding of instructions, pt awake alert oriented, resp reg unlabored, skin w/d, color appropriate for race, moves all ext well,pt encouraged to follow up with pcp Advised to seek medical attention for new/prolonged/worsening of symptoms, Symptoms improved. No adverse reaction to meds given in ER noted upon discharge PIV d'cd, dressing to site, catheter in tact. Awake, alert oriented, resp reg unlabored, skin w/d, pt leaving amb with steady gait, in no apparent distress, Shefali Pedro [facility]bpjiw1673-79-90 16:46:43 Pt states she has been feeling fatigue [id number], referred to rheumatology, feels like she wants to pass out and feels like her memory is not her normal. Vanessa Bhakta [facility]okeKzukgt6118-96-98 15:35:12Upcoming Encounters Health Maintenance Due Date Last Done Comments Varicella Vaccines (1 of 2 - 13+ 2-dose series) 2002 Hepatitis B Vaccines (1 of 3 - 19+ 3-dose series) 2008 Pap Smear 2010 Annual Physical 11/29/2023 11/28/2022, 12/27/2016 Influenza Vaccine (Season Ended) 2024 DTaP/Tdap/Td Vaccines (2 - T d or Tdap) 09/23/2027 09/22/2017 Cervical Cancer Screening 11/29/2027 HPV/Cotest 11/29/2027 11/28/2022 Lipid Panel 10/25/2028 10/26/2023 Respiratory Syncytial Virus (RSV) Adult Series (1 - 1-dose 75+ series) 2064 HIB Vaccines Aged Out No longer eligi ble based on patient's age to complete this topic HPV Vaccines Aged Out No longer eligi ble based on patient's age to complete this topic Hepatitis A Vaccines Aged Out No long er eligible based on patient's age to complete this topic IPV Vaccines Aged Out No longer eligi ble based on patient's age to complete this topic Meningococcal Vaccine Aged Out No gracie joey eligible based on patient's age to complete this topic Pneumococcal Vaccine: Pediatrics (0 to 5 Years) and At-Risk Patients (6 to 64 Years) Aged Out No longer eligible b ased on patient's age to complete this topic Rotavirus Vaccines Aged Out No longer eligible based on patient's age to complete this topic [facility]pbiiph8646-44-13 15:35:12 [facility] CenterEzjrrou3408-81-42 13:43:28 OOMA 06/19/2024, 1:43 PM (VOICE) The patient's spouse called seeking advice, as his is experiencing persistent dizziness and is unable to walk on her own without assistance or holding onto a wall. Please advise. Thank you. Ashli Gómez MA 06/19/2024 1:45 PM Ashli Gómez [facility]2025-04-25 11:08:24* [facility] 2024-06-14 11:08:24* Marj Webster MD - 06/14/2024 10:00 AM CDT Images from the original note were not included. Subjective Patient ID: Kelly Prince is a 33 y.o. female who presents for Consult for +RAEANN, +dsDNA. HPI Patient with no PMH presents for eval of +RAEANN, +dsDNA. 2 wks ago, has episode of shakiness and feels like passing out, with nausea/diarrhea, seen at ED, was told anxiety, and was given lorazepam, started on dicyclomine and pantoprazole by PCP, she felt better. A few days after, noticed extreme fatigue. Having troubles to manage daily activities, seen PCP, had lab eval which showed +RAEANN 1:40 nuclear, homogeneous; Elevated dsDNA 131; neg SM/GRAPHITE PAN DRIER TENDER/chromatin; 05/2024 lab showed neg Cr/LFT, neg WBC/plt, hgb 11.5. low vitD 17. Also noticed palpitation for the past week, occ resting chest pain, not associated with deep inspiration. Occ resting shortness of breath. Reports ear ringing with sensitivity to loud noise. Also noticed able hear heart beat in her Left ear. Seen ENT and was told fine. Rheum ROS is neg for fever, unintentional wt loss, photosensitivity, patchy hair loss, skin rash, psoriasis, sausage digits, recurrent mouth sores, eye inflammation, dry eyes, dry mouth, chest pain, shortness of breath, recurrent blood in stool, blood clots, Raynauds, skin thickening, numbness or weakness, history of lung or kidney disease, family history of autoimmune disease.. Current Outpatient Medications on File Prior to Visit Medication Sig Dispense Refill cholecalciferol 1.25 MG (58691 UT) capsule Take 1 capsule by mouth every 7 days. dicyclomine (Bentyl) 20 MG tablet Take 1 tablet by mouth every 6 hours during the day. pantoprazole (ProtoNix) 40 MG EC tablet Take 40 mg by mouth in the morning. Take before meals. No current facility-administered medications on file prior to visit. History reviewed. No pertinent past medical history. History reviewed. No pertinent surgical history. Family History: Problem Relation Name Age of Onset Diabetes Mother Hypertension Mother Stroke Father Diabetes Father Hypertension Father Social History Socioeconomic History Marital status: Spouse name: Not on file Number of children: Not on file Years of education: Not on file Highest education level: Not on file Occupational History Not on file Tobacco Use Smoking status: Never Smokeless tobacco: Never Substance and Sexual Activity Alcohol use: Never Drug use: Never Sexual activity: Not on file Other Topics Concern Not on file Social History Narrative Not on file Social Drivers of Health Financial Resource Strain: Not on file Food Insecurity: Not on file Transportation Needs: Not on file Physical Activity: Not on file Stress: Not on file Social Connections: Not on file Intimate Partner Violence: Not on file Housing Stability: Not on file Allergies Allergen Reactions Penicillins Unknown and Rash Other Reaction(s): Unknown - See comments Review of Systems Constitutional: Positive for fatigue. HENT: Negative. Eyes: Negative. Respiratory: Positive for shortness of breath. Cardiovascular: Positive for chest pain. Gastrointestinal: Negative. Endocrine: Negative. Genitourinary: Negative. Musculoskeletal: Negative. Skin: Negative. Allergic/Immunologic: Negative. Neurological: Positive for light-headedness. Hematological: Negative. Psychiatric/Behavioral: Negative. Objective Physical Exam: Assessment & Plan Patient ID: Kelly Prince is a 33 y.o. female who presents for Consult for +RAEANN, +dsDNA. Assessment & PlanPositive RAEANN (antinuclear antibody) Acute onset of myriad of symptoms in a young female with +RAEANN low titer, +dsDNA, benign exam. Lab showing anemia, neg Cr/LFT/WBC/plt. Will get further eval. Labs before next visit. Orders:AVISE - Miscellaneous (External) Test; Future Protein and Creatinine Random Urine with Ratio; Future Urinalysis w/Reflex microscopic; Future Chest pain, unspecified typeNon exertional chest pain, not typical pleurisy either. Will send for chest x ray. Orders: XR chest 2 views; Future Low vitamin D levelContinue with vitD supplements. Ds DNA antibody positive As above. Other fatigue Labs before next visit. Orders: Iron + transferrin + TIBC; Future Thyroid Stimulating Hormone w/ Reflex Free T4; Future Follow up: AVISE, lab, chest x ray, 2 wks Management options were discussed. Answered all questions. Side effects of medications were discussed. Reviewed labs and diagnostics with patient. Pt to continue to follow up with PCP for routine health evaluation [facility]2025-04-25 11:08:24Upcoming Encounters Scheduled Orders Name Type Priority Associated Diagnoses Orde r Schedule AVISE - Miscellaneous (External) Test Lab Routine Positive RAEANN (antinuclear antibody) Expected: 06/14/2024 (Approximate), Expires: 06/14/2025 Protein and Creatinine Random Urine with Ratio Lab Routine Positive RAEANN (antinuclear antibody) Expected: 06/14/2024 (Approximate), Expires: 06/14/2025 Urinalysis w/Reflex microscopic Lab Routine Positive RAEANN (antinuclear antibody) Expected: 06/14/2024 (Approximate), Expires: 06/14/2025 Iron + transferrin + TIBC Lab Routine Other fati carie Expected: 06/14/2024 (Approximate), Expires: 06/14/2025 Thyroid Stimulating Hormone w/ Reflex Free T4 Lab Routine Other fatigue Expect ed: 06/14/2024 (Approximate), Expires: 06/14/2025 XR chest 2 views Imaging Routine Chest pain, unspecified type Expected: 06/14/2024 (Approximate), Expires: 09/13/2024 Health Maintenance Due Date Last Done Comments Varicella Vaccines (1 of 2 - 13+ 2-dose series) 2002 Hepatitis B Vaccines (1 of 3 - 19+ 3-dose series) 2008 Pap Smear 2010 Annual Physical 11/29/2023 11/28/2022, 12/27/2016 Influenza Vaccine (Season Ended) 2024 DTaP/Tdap/Td Vaccines (2 - T d or Tdap) 09/23/2027 09/22/2017 Cervical Cancer Screening 11/29/2027 HPV/Cotest 11/29/2027 11/28/2022 Lipid Panel 10/25/2028 10/26/2023 Respiratory Syncytial Virus (RSV) Adult Series (1 - 1-dose 75+ series) 2064 HIB Vaccines Aged Out No longer eligi ble based on patient's age to complete this topic HPV Vaccines Aged Out No longer eligi ble based on patient's age to complete this topic Hepatitis A Vaccines Aged Out No long er eligible based on patient's age to complete this topic IPV Vaccines Aged Out No longer eligi ble based on patient's age to complete this topic Meningococcal Vaccine Aged Out No gracie joey eligible based on patient's age to complete this topic Pneumococcal Vaccine: Pediatrics (0 to 5 Years) and At-Risk Patients (6 to 64 Years) Aged Out No longer eligible b ased on patient's age to complete this topic Rotavirus Vaccines Aged Out No longer eligible based on patient's age to complete this topic [id number] 11:08:24 Diagnosis Positive RAEANN (antinuclear antibody) - Primary Other and unspecified nonspecific immunological findings Chest pain, unspecified type Low vitamin D level Ds DNA antibody positive Other fatigue [id number] 11:08:24 [place] [id number] 12:30:55 Pt given printed and verbal discharge [...] no apparent distress, left with . [id number] 09:45:55 Patient states: "About a week ago [...] depression 2 weeks ago. Pmhx: none Amaral [facility]
--- NOTE | 2024-07-03 21:04 | RAD REPORT ---
EXAMINATION: ONE VIEW CHEST XR CLINICAL INDICATION: Female, 33 years old.,syncope TECHNIQUE: Frontal chest projection is submitted. Examination is limited by patient positioning and t echnique. COMPARISON: 11/01/2023 FINDINGS: The lungs are well inflated and clear. No pneumothorax or sizable effusion. The heart is normal in s ize. Mediastinal contours are unremarkable. IMPRESSION: No acute intrathoracic abnormalities.
[2024-07-03] MEDS ORDERED: NA CHLORIDE 0.9% 1,000 ML ONE (21:15)
[2024-07-03 21:32] LABS: Absolute Eosinophils 0.1 K/uL (0-0.5); Absolute Lymphocytes (CBC) 2.4 K/uL (0.7-4.9); Absolute Neutrophil 9.4 K/uL (1.8-8.0); Basophils % 0.4 % (0-1.3); Eosinophils % 0.6 % (0-4.4); Hematocrit 36.2 % (36.0-45.0); Lymphocytes % 18.5 % (15.3-44.8); MCH 25.3 pg (27.0-35.0); MCHC 33.1 g/dL (32.0-36.0); MCV 76.5 fL (80-100); MPV 8.1 fL (7.6-11.3); Monocytes % 7.6 % (3.3-12.3); Neutrophils % 72.9 % (41.7-73.7); Platelets 294 thou/uL (152-406); RBC Red Blood Cell Count 4.73 M/uL (3.86-4.86); Red Cell Distribution Width 17.7 % (12.1-15.2)
[2024-07-03 21:38] LABS: PT Prothrombin Time 10.4 SECONDS (10-13.0); Protime INR 0.91
[2024-07-03 21:54] LABS: Albumin 3.1 g/dL (3.4-5.0); Albumin/Globulin Ratio 0.7 (1.1-1.8); Alkaline Phosphatase 83 U/L (45-117); Anion Gap 9.3 mEq/L (5.0-15.0); BUN Blood Urea Nitrogen 6 mg/dL (7-18); Bicarbonate 23 mEq/L (21-32); Bilirubin Total 0.2 mg/dL (0.2-1.0); Globulin 4.5 g/dL (2.3-3.5); Glomerular Filtration Rate 112 ml/min (=/>90); Glucose Level 165 mg/dL (74-106); Magnesium 1.8 mg/dL (1.6-2.4); Potassium 3.3 mEq/L (3.5-5.1); Protein, Total 7.6 g/dL (6.4-8.2); Sodium Level 137 mEq/L (136-145)
[2024-07-03 22:10] LABS: Ferritin 24.1 ng/mL (8-252)
[2024-07-03 22:12] LABS: ALT/SGPT < 14 U/L (13-56); AST/SGOT < 10 U/L (15-37); Bilirubin Direct < 0.2 mg/dL (0-0.2); Troponin High Sensitivity < 3.0 pg/mL (<58.9)
--- NOTE | 2024-07-03 22:20 | EDPHYS ---
Physician Documentation [facility] Name: Kelly Early Age: 33 yrs Sex: Female : 1990 Arrival Date: 07/03/2024 Time: 20:13 Bed DX4 Private MD: ED Physician Akanksha Coffey HPI: 07/03 20:27 This 33 yrs old Female presents to ER via Unassigned with complaints of sp3 weakness and near syncope. 20:27 33-year-old female with history of depression, anxiety with unknown rheumatological sp3 process currently being worked up outpatient, anemia for which patient states she is in the process o getting scheduled for IV iron, now presents to the ED with chief complaint near syncope and generalized weakness for over 1 week. Today because of the near syncopal episode she activated EMS. EMS found patient be tachycardic in the 120s and generally weak with no focal deficits. Patient denies any headache, neck pain, chest pain, shortness of breath, abdominal pain, melena, bleeding with stools, dysuria, blood in her urine, rash, or any other signs or symptoms on ROS at this time. She does state that her menses have been heavy.. 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 - Infectious Disease History:: Denies. - Social history:: Smoking status: unknown. ROS: 20:29 Constitutional: Negative for fever, chills, and weight loss, Eyes: Negative for injury, sp3 pain, redness, and discharge, Neck: Negative for injury, pain, and swelling, Respiratory: Negative for shortness of breath, cough, wheezing, and pleuritic chest pain, Abdomen/GI: Negative for abdominal pain, nausea, vomiting, diarrhea, and constipation, Back: Negative for injury and pain, MS/Extremity: Negative for injury and deformity, Skin: Negative for injury, rash, and discoloration, Psych: Negative for depression, anxiety, suicide ideation, homicidal ideation, and hallucinations, Allergy/Immunology: Negative for hives, rash, and allergies, Endocrine: Negative for neck swelling, polydipsia, polyuria, polyphagia, and marked weight changes, 20:29 All other systems are negative, Exam: 20:30 Constitutional: This is a well developed, well nourished patient who is awake, alert, sp3 and in no acute distress. Head/Face: Normocephalic, atraumatic. Eyes: Pupils equal round and reactive to light, extra-ocular motions intact. Lids and lashes normal. Conjunctiva and sclera are non-icteric and not injected. Cornea within normal limits. Periorbital areas with no swelling, redness, or edema. Neck: Trachea midline, no thyromegaly or masses palpated, and no cervical lymphadenopathy. Supple, full range of motion without nuchal rigidity, or vertebral point tenderness. No Meningismus. Chest/axilla: Normal chest wall appearance and motion. Nontender with no deformity. No lesions are appreciated. Respiratory: Lungs have equal breath sounds bilaterally, clear to auscultation and percussion. No rales, rhonchi or wheezes noted. No increased work of breathing, no retractions or nasal flaring. Abdomen/GI: Soft, non-tender, with normal bowel sounds. No distension or tympany. No guarding or rebound. No evidence of tenderness throughout. Back: No spinal tenderness. No costovertebral tenderness. Full range of motion. MS/ Extremity: Pulses equal, no cyanosis. Neurovascular intact. Full, normal range of motion. Neuro: Awake and alert, GCS 15, oriented to person, place, time, and situation. Cranial nerves II-XII grossly intact. Motor strength 5/5 in all extremities. Sensory grossly intact. Cerebellar exam normal. Normal gait. Psych: Awake, alert, with orientation to person, place and time. Behavior, mood, and affect are within normal limits. 20:30 Cardiovascular: Rate: tachycardic, 20:30 Skin: Patient has pallor on the skin. 20:30 Neuro: No focal deficits noted. NIH stroke scale 0., 22:35 ECG was reviewed by the Attending Physician. EKG demonstrates normal sinus rhythm at 94 sp3 bpm with normal intervals, normal QRS, normal axis, nonspecific diffuse ST/T changes without evidence of acute ischemia. Vital Signs: 20:40 BP 153 / 128; Pulse 119; Resp 16; Temp 98.9(O); Pulse Ox 100% on R/A; lg3 22:28 BP 123 / 87; Pulse 84; Resp 16 S; Pulse Ox 98% on R/A; lg3 MDM: 20:20 Medical Screening Exam initiated sp3 20:31 Data reviewed: vital signs, nurses notes, EMS record, old medical records, lab test sp3 result(s), EKG, radiologic studies. ED course: 33-year-old female with near syncope and history of anemia tachycardic. Differential diagnosis includes critical anemia, cardiac event, dehydration, electrolyte disturbance, viral illness, among others. Workup will include EKG, chest x-ray, general labs including hCG and troponin, and IV fluids for treatment. Disposition pending workup and patient course.. 22:18 ED course: Heart rate now in the 90s and patient resting comfortably. All workup sp3 negative and we will safely discharge patient to rheumatology follow-up. Consider anxiety as diagnosis.. 07/03 20:23 Order name: Basic Metabolic Panel; Complete Time: 22:17 3 07/03 20:23 Order name: CBC with Diff; Complete Time: 22:17 sp3 07/03 20:23 Order name: LFT's; Complete Time: 22:17 sp3 07/03 20:23 Order name: Magnesium; Complete Time: 22:17 sp07/03 20:23 Order name: PT-INR; Complete Time: 22:17 sp07/03 20:23 Order name: Troponin HS; Complete Time: 22:17 07/03 20:23 Order name: Iron Level; Complete Time: 22:17 3 07/03 20:23 Order name: Test, Serum; Complete Time: 22:17 sp3 07/03 20:54 Order name: TSH; Complete Time: 22:17 sp07/03 20:23 Order name: XRAY Chest (1 view); Complete Time: 21:06 3 07/03 20:23 Order name: EKG; Complete Time: 20:24 sp07/03 20:23 Order name: EKG - Nurse/Tech; Complete Time: 21:30 07/03 20:23 Order name: IV Saline Lock; Complete Time: 21:30 3 07/03 20:23 Order name: Labs collected and sent; Complete Time: 21:31 sp3 07/03 20:23 Order name: O2 Sat Monitoring; Complete Time: 21:31 sp3 Administered Medications: 21:30 Drug: NS 0.9% IV 1000 ml IV at 1000 ml once; to be given as a bolus over 60 minutes lg3 Route: IV; Rate: 1000 ml; Site: left antecubital; 22:27 Follow up: Response: No adverse reaction; IV Status: Completed infusion; IV Intake: lg3 1000ml Disposition Summary: 07/03/24 22:20 Discharge Ordered Notes: Location: Home sp3 Condition: Stable sp3 Diagnosis - Near syncope sp3 Followup: sp3 - With: Private Physician - When: Upon discharge from the Emergency Department - Reason: Continuance of care Discharge Instructions: - Discharge Summary Sheet sp3 - Near-Syncope sp3 Forms: - Medication Reconciliation Form sp3 - Antibiotic Education sp3 - Prescription Opioid Use sp3 - Patient Portal Instructions sp3 - Leadership Thank You Letter sp3 Signatures: Dispatcher [employer] Marian Israel RN RN lg3 Akanksha Coffey MD MD sp3
--- NOTE | 2024-07-03 22:20 | ER ---
Nurse's Notes [facility] Name: Kelly Early Age: 33 yrs Sex: Female : 1990 Arrival Date: 07/03/2024 Time: 20:13 Bed DX4 Private MD: Diagnosis: Near syncope Presentation: 07/03 20:40 Chief complaint: EMS states: weakness X1 month. Coronavirus screen: Client denies lg3 travel out of the [place] in the last 14 days. At this time, the client does not indicate any symptoms associated with coronavirus-19. Ebola Screen: No symptoms or risks identified at this time. Initial Sepsis Screen: Does the patient meet any 2 criteria? No. Patient's initial sepsis screen is negative. Does the patient have a suspected source of infection? No. Patient's initial sepsis screen is negative. Risk Assessment: Do you want to hurt yourself or someone else? Patient reports no desire to harm self or others. Onset of symptoms is unknown. Care prior to arrival: Medication(s) given: zofran 4 mg, IV initiated. 20 GA, in the left antecubital area. 20:40 Method Of Arrival: EMS: [facility] lg3 20:40 Acuity: CYNTHIA 3 lg3 Triage Assessment: 20:42 General: Appears in no apparent distress. comfortable, Behavior is calm, cooperative. lg3 Pain: Denies pain. EENT: No deficits noted. No signs and/or symptoms were reported regarding the EENT system. Neuro: No deficits noted. Alaniz Agitation-Sedation Scale (RASS): 0 - Alert and Calm Level of Consciousness is awake, alert, obeys commands, Oriented to person, place, time, situation, Reports weakness. Cardiovascular: No deficits noted. Denies chest pain, shortness of breath, Capillary refill < 3 seconds Clubbing of nail beds is absent JVD is absent Patient's skin is warm and dry. Respiratory: No deficits noted. Airway is patent Respiratory effort is even, unlabored, Respiratory pattern is regular, symmetrical. GI: No deficits noted. No signs and/or symptoms were reported involving the gastrointestinal system. Abdomen is round non-distended, obese. : No signs and/or symptoms were reported regarding the genitourinary system. Derm: No deficits noted. Skin is intact, is healthy with good turgor, Skin is dry, Skin is normal, Skin temperature is warm. Musculoskeletal: No deficits noted. Circulation, motion, and sensation intact. Range of motion: intact in all extremities. 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 - Infectious Disease History:: Denies. - Social history:: Smoking status: unknown. Screenin:42 [facility] ED Fall Risk Assessment (Adult) History of falling in the last 3 months, lg3 including since admission No falls in past 3 months (0 pts) Confusion or Disorientation No (0 pts) Intoxicated or Sedated No (0 pts) Impaired Gait No (0 pts) Mobility Assist Device Used No (0 pt) Altered Elimination No (0 pt) Score/Fall Risk Level 0 - 2 = Low Risk Oriented to surroundings, Maintained a safe environment, Educated pt \T\ family on fall prevention, incl call for assistance when getting out of bed, Assessed \T\ reinforced patient's understanding of fall precautions. Abuse screen: Denies threats or abuse. Denies injuries from another. Nutritional screening: No deficits noted. Tuberculosis screening: No symptoms or risk factors identified. Assessment: 20:42 General: see triage assessment. lg3 22:27 Reassessment: Patient appears in no apparent distress at this time. No changes from lg3 previously documented assessment. Patient and/or family updated on plan of care and expected duration. Pain level reassessed. Patient is alert, oriented x 3, equal unlabored respirations, skin warm/dry/pink. Patient states feeling better. Patient states symptoms have improved. Vital Signs: 20:40 BP 153 / 128; Pulse 119; Resp 16; Temp 98.9(O); Pulse Ox 100% on R/A; lg3 22:28 BP 123 / 87; Pulse 84; Resp 16 S; Pulse Ox 98% on R/A; lg3 ED Course: 20:15 Patient arrived in ED. sp3 20:15 Akanksha Coffey MD is Attending Physician. sp3 20:40 XRAY Chest (1 view) In Process Unspecified. EDMS 20:42 Triage completed. lg3 20:42 Arm band placed on right wrist. lg3 20:42 Patient has correct armband on for positive identification. Family accompanied patient. lg3 21:30 Maintain EMS IV. Dressing intact. Good blood return noted. Site clean \T\ dry. Gauge \T\ lg 3 site: 20 LAC. Flushed with 10 mL NS. 22:28 No provider procedures requiring assistance completed. IV discontinued, intact, lg3 bleeding controlled, No redness/swelling at site. Pressure dressing applied. Administered Medications: 21:30 Drug: NS 0.9% IV 1000 ml IV at 1000 ml once; to be given as a bolus over 60 minutes lg3 Route: IV; Rate: 1000 ml; Site: left antecubital; 22:27 Follow up: Response: No adverse reaction; IV Status: Completed infusion; IV Intake: lg3 1000ml Medication: 20:42 VIS not applicable for this client. lg3 Intake: 22:27 IV: 1000ml; Total: 1000ml. lg3 Outcome: 22:20 Discharge ordered by . sp3 22:28 Discharged to home ambulatory, with significant other, lg3 22:28 Condition: stable 22:28 Discharge instructions given to patient, Instructed on discharge instructions, follow up and referral plans. Demonstrated understanding of instructions, follow-up care, 22:38 Patient left the ED. lg3 Signatures: Dispatcher [employer] Marian Israel RN RN lg3 Akanksha Coffey MD MD sp3
[2024-07-03 23:12] VITALS: TEMP 98.9
[2024-07-03 23:14] VITALS: BP 123/87; O2SAT 98
--- NOTE | 2024-07-08 16:58 | EKG ---
Test Date: 2024-07-03 Test Time: 21:22:23 Sales Office Assistant: MM MEASUREMENT RESULTS: Intervals: Rate: 94 MA: 148 QRSD: 80 QT: 346 QTc: 432 [place]: P: 72 MA: 148 QRS: 30 T: 39 INTERPRETIVE STATEMENTS: Normal sinus rhythm Possible Left atrial enlargement Borderline ECG Compared to ECG 05/26/2024 15:15:17 Left ventricular hypertrophy no longer present Electronically Signed On 07-08-24 16:51:52 CDT by Escobar Cooper
== END 2024-07-03 22:38 | disposition home or self-care (01) ==
LOC: ER 20:13
DX: R55 Syncope and collapse (principal); R53.1 Weakness
CPT/HCPCS: 85025; 80048; 36415; 83735; 84703; 85610; 80076; 84443; 84484; 82728; 71045; J7030; 93005; 96360; 99284